=== PATIENT | female | born 1945 | race Caucasian/White ===

== ENCOUNTER 2017-06-15 17:15 | Emergency (ER) | payer MEDICARE ==
[2017-06-15 18:04] LABS: ABSOLUTE EOSINOPHILS # (AUTO) 0.1 10^3/uL (0.0-0.6); ABSOLUTE LYMPHOCYTES (AUTO) 1.3 10^3/uL (0.5-4.7); ABSOLUTE MONOCYTES (AUTO) 0.4 10^3/uL (0.1-1.4); ABSOLUTE NEUT (AUTO) 3.7 10^3/uL (1.7-8.2); BASOPHILS % (AUTO) 0.7 % (0-2); EOSINOPHILS % (AUTO) 2.5 % (0-6); HEMATOCRIT 38.3 % (36.0-47.0); HEMOGLOBIN 12.9 g/dL (12.0-15.5); LYMPHOCYTES % (AUTO) 23.9 % (13-45); MEAN CORPUSCULAR HEMOGLOBIN 30.2 pg (27.0-33.4); MEAN CORPUSCULAR HGB CONC 33.6 g/dL (32.0-36.0); MEAN CORPUSCULAR VOLUME 90 fl (80-97); MONOCYTES % (AUTO) 6.9 % (3-13); PLATELET COUNT 129 10^3/uL (150-450); RED BLOOD COUNT 4.26 10^6/uL (3.72-5.28); TOTAL CELLS COUNTED % (AUTO) 100 %; WHITE BLOOD COUNT 5.7 10^3/uL (4.0-10.5)
[2017-06-15 18:05] LABS: INTERNATIONAL RATION (INR) 0.94; PARTIAL THROMBOPLASTIN TIME 27.6 SEC (23.5-35.8); PROTHROMBIN TIME 13.1 SEC (11.4-15.4)
[2017-06-15 18:11] LABS: ALANINE AMINOTRANSFERASE 17 U/L (9-52); ALKALINE PHOSPHATASE 104 U/L (38-126); ANION GAP 13 (5-19); ASPARTATE AMINO TRANSFERASE 16 U/L (14-36); BILIRUBIN,DIRECT 0.3 mg/dL (0.0-0.4); BILIRUBIN,TOTAL 0.6 mg/dL (0.2-1.3); BLOOD UREA NITROGEN 17 mg/dL (7-20); CALCIUM 9.8 mg/dL (8.4-10.2); CARBON DIOXIDE 25 mmol/L (22-30); CHLORIDE 106 mmol/L (98-107); GLUCOSE 97 mg/dL (75-110); POTASSIUM 3.8 mmol/L (3.6-5.0); SODIUM 144.4 mmol/L (137-145); TOTAL PROTEIN 6.8 g/dL (6.3-8.2); URIC ACID 8.2 mg/dL (2.5-7.5)
--- NOTE | 2017-06-15 18:40 | ER Document Report ---
ED Extremity Problem, Lower - General Chief Complaint: Leg Pain Stated Complaint: RIGHT LEG PAIN Time Seen by Provider: 06/15/17 17:45 Notes: Patient says that her right leg and foot have been "flaring up" for the past month. She recalls no unusual activity or injury. She has been told in the past she has gout, but is currently not taking any gout medications. She says that the right leg hurts in the foot and ankle region, knee, and right hip area. She is having difficulty walking without assistance. Never had any problems with blood clots. Is currently on Effient. Also taking a baby aspirin daily. Patient used to be on Lasix, but has been out of it for 6 months. Feels anxious and panicky. Patient has a history of heart disease and previous heart attacks and has had multiple stents placed. Former smoker, stopped 12 years ago. TRAVEL OUTSIDE OF THE [place] IN LAST 30 DAYS: No - Related Data Allergies/Adverse Reactions: Shellfish * [Shellfish] Allergy (Verified 06/15/17 17:35) iodine Allergy (Severe, Uncoded 06/15/17 17:35) anaphalaxis Home Medications: ezetimibe. lisinopril. prasugrel. atorvastatin. HCTZ. metoprolol. ASA 81. Vit b12 Past Medical History - Social History Smoking Status: Former Smoker Chew tobacco use (# tins/day): No Frequency of alcohol use: None Drug Abuse: None Family History: CAD Patient has suicidal ideation: No Patient has homicidal ideation: No - Past Medical History Cardiac Medical History: Reports: Hx Coronary Artery Disease, Hx Heart Attack - 1999, Hx Hypercholesterolemia, Hx Hypertension Pulmonary Medical History: Reports: Hx Bronchitis Neurological Medical History: Reports: Hx Cerebrovascular Accident - TIA Endocrine Medical History: Reports: Hx Diabetes Mellitus Type 2 GI Medical History: Reports: Hx Hiatal Hernia Psychiatric Medical History: Reports: Hx Anxiety - situational, see hpi Past Surgical History: Reports: Hx Cardiac Catheterization - stents x5 2001,2002 ,2004, 2012 - Immunizations Hx Diphtheria, Pertussis, Tetanus Vaccination: Yes Review of Systems - Review of Systems Notes: REVIEW OF SYSTEMS: CONSTITUTIONAL : Denies fever. EENT: Denies eye, ear, nose or mouth or throat pain or other symptoms. CARDIOVASCULAR: Denies chest pain. RESPIRATORY: Denies cough, chest congestion, or shortness of breath. GASTROINTESTINAL: Denies abdominal pain or nausea, vomiting, or diarrhea. GENITOURINARY: Denies difficulty or painful urinating, urinary frequency, blood in urine. MUSCULOSKELETAL: Denies back or neck pain. Denies joint pain or swelling. Swelling and pain of the entire right leg. SKIN: Denies rash or skin lesions. NEUROLOGICAL: Denies LOC or altered mental status. Denies headache. Denies sensory loss or motor deficits. ALL OTHER SYSTEMS REVIEWED AND NEGATIVE. Physical Exam - Vital signs Vitals: Resp BP Pulse Ox 14 156/65 H 99 06/15/17 17:31 06/15/17 17:31 06/15/17 17:31 - Notes Notes: PHYSICAL EXAMINATION: GENERAL: Well-appearing, in no acute distress. Vital signs are all essentially normal. Patient appears to have pain when she puts weight on her leg and attempts to ambulate. HEAD: Atraumatic, normocephalic. EYES: Pupils equal round and reactive to light, extraocular movements intact. ENT: oropharynx clear without exudates. Moist mucous membranes. NECK: Normal range of motion, supple. LUNGS: Breath sounds clear and equal bilaterally. HEART: Regular rate and rhythm without murmurs. ABDOMEN: Soft, nontender. No guarding or rebound. No masses. BACK: No tenderness throughout entire back. EXTREMITIES: Normal range of motion without pain. Right leg may be slightly enlarged compared to the left. Right foot is enlarged compared to the left and it appears to be an edematous enlargement. Patient has some erythema and tenderness at the first MP joint of the big toe of the right foot. Right ankle not much discomfort to move. Knee the same. Hip also hurts to move. Good dorsalis pedis pulse in the foot. Right foot is warm and pink with good capillary refill. No significant swelling of the right knee or left knee. Negative Homans of both lower extremities. NEUROLOGICAL: Normal speech, because of pain in that entire limb. Normal sensory, motor, and reflex exams. Awake, alert, and oriented x3. Cranial nerves normal. PSYCH: Normal mood, normal affect. SKIN: Warm, dry, no rashes. Course - Re-evaluation Re-evalutation: 06/15/17 19:32 Patient's workup is completely normal except for the clot in the superficial saphenous vein and her uric acid level is very slightly elevated at 8.5. - Vital Signs Vital signs: Temp Pulse Resp BP Pulse Ox 98.7 F 14 156/65 H 99 06/15/17 17:33 06/15/17 17:31 06/15/17 17:31 06/15/17 17:31 - Laboratory Result Diagrams: 06/15/17 17:22 06/15/17 17:22 Laboratory results interpreted by me: 06/15/17 06/15/17 17:22 17:22 RDW 15.0 H Plt Count 129 L Uric Acid 8.2 H - Diagnostic Test Radiology reviewed: Image reviewed, Reports reviewed - Venous Doppler study is normal. No DVTs. Only some clot in the superficial saphenous. Discharge - Discharge Clinical Impression: Gout Condition: Stable Disposition: ELOPED Additional Instructions: You should arrange to find a primary care physician to further evaluate your leg pain if it is not doing better. Also to manage her medications better. Gout You have been diagnosed as having gout. Gout is a problem caused by an excess of uric acid, a natural chemical found in the body. The cause of this disease is unknown. Gout arthritis occurs when crystals of uric acid form in the joints. The big toe is the most common joint involved, but any joint can become affected. Persons with gout may also form uric acid kidney stones, resulting in flank pain and blood in the urine. Nodules of uric acid may form under the skin. The first step of treatment is to decrease the inflammation in the joint with antiinflammatory medication. Medication to lower the uric acid level in the blood may then be prescribed. This medication should be taken regularly, as any sudden change in dosage may provoke an attack of gout. Some foods, such as red meat, can provoke an attack in some gout sufferers. Call the doctor if new symptoms arise, or if you do not improve. Gout Diet Changing your diet can decrease the uric acid in your blood. High levels of uric acid cause gouty arthritis and uric acid kidney stones. If you have gout , you should avoid meats that are high in purine. Meat products to avoid include liver, kidneys, and brains. In general, poultry is better than red meats. Seafoods to avoid include anchovies, sardines, owens, mackerel, and scallops. In addition to limiting purine-rich foods, people with gout should limit protein intake to 10-15% of total calories. Carbohydrate intake should be around 50% of total daily calories. Limit fat intake to 30% of total daily calories. Cholesterol intake should be less than 300 mg/day. Maintain or achieve a healthy body weight. Weight loss should be gradual. Rapid weight loss can actually increase uric acid levels temporarily. Alcohol, especially beer, should be avoided. Get plenty of fluids. This dilutes urinary uric acid, and helps prevent uric acid kidney stones. Drink eight to twelve cups of water daily. Allopurinol Allopurinol (Zyloprim) is used to prevent gout and uric acid kidney stones. Allopurinol lowers uric acid in your body. It's most effective if taken daily. It's not useful to treat an attack of gout once it begins! There are usually no side effects from allopurinol. If you have any kidney disease, be sure your doctor knows about it before starting allopurinol ( you may need a lower dose). Stop the allopurinol and call your doctor if you develop severe itching, rash, unexplained blisters, unexplained bruises, jaundice (yellow skin), or swelling. Oral Narcotic Medication You have been given a prescription for pain control. This medication is a narcotic. It's best taken with food, as nausea can result if taken on an empty stomach. Don't operate machinery or drive within six hours of taking this medication. Do not combine this medicine with alcohol, or with any medication which can cause sedation (such as cold tablets or sleeping pills) unless you get permission from the physician. Narcotics tend to cause constipation. If possible, drink plenty of fluids and eat a diet high in fiber and fruits. FOLLOW-UP CARE: If you have been referred to a physician for follow-up care, call the physician s office for an appointment as you were instructed or within the next two days. If you experience worsening or a significant change in your symptoms, notify the physician immediately or return to the Emergency Department at any time for re-evaluation. Prescriptions: Oxycodone HCl/Acetaminophen [Percocet 5-325 mg Tablet] 1 tab PO Q4HP PRN #10 tablet PRN Reason: Allopurinol [Zyloprim 100 mg Tablet] 100 mg PO DAILY #30 tablet
[2017-06-15 19:43] VITALS: BP 150/81
--- NOTE | 2017-06-16 08:53 | XCELERA REPORT ---
[address] [address] Lower Extremity Venous Evaluation Name: LOLIS BELTRÁN Age: 72 yrs Gender: Female : 1945 Patient Status: Emergency Patient Location: ER Study Date: 06/15/2017 06:56 PM Procedure: Color flow and duplex imaging of the veins of the right lower extremity as well as the left Common Femoral vein. Reason For Study: Right leg pain and swelling for a month, Hx gout Ordering Physician: DWIGHT ALVARENGA Performed By: Mally De Luna Left Sided Venous Evaluation The left common femoral vein is fully compressible. Spontaneous and phasic flow is present in the left common femoral vein. Interpretation Summary No duplex evidence of DVT or obstruction in the right lower extremity nor in the left Common Femoral vein. : DWIGHT ALVARENGA > Dudley Dumont
== END 2017-06-15 19:43 | disposition home or self-care (01) ==
LOC: ER 17:15
DX: M10.9 Gout, unspecified (principal); I82.819 Embolism and thrombosis of superficial veins of unspecified lower extremity; M79.671 Pain in right foot; M25.571 Pain in right ankle and joints of right foot; M25.561 Pain in right knee; M25.551 Pain in right hip; I10 Essential (primary) hypertension; I25.10 Atherosclerotic heart disease of native coronary artery without angina pectoris; E11.9 Type 2 diabetes mellitus without complications; E78.00 Pure hypercholesterolemia, unspecified; Z79.02 Long term (current) use of antithrombotics/antiplatelets; Z79.82 Long term (current) use of aspirin; Z79.899 Other long term (current) drug therapy; Z95.5 Presence of coronary angioplasty implant and graft; Z87.891 Personal history of nicotine dependence; Z91.013 Allergy to seafood; Z87.892 Personal history of anaphylaxis
CPT/HCPCS: 36415; 80053; 84550; 85025; 85610; 85730; 86430; 93971; 99284

== ENCOUNTER 2017-07-12 09:09 | Emergency (ER) | payer MEDICARE ==
[2017-07-12 10:09] LABS: ABSOLUTE EOSINOPHILS # (AUTO) 0.1 10^3/uL (0.0-0.6); ABSOLUTE LYMPHOCYTES (AUTO) 0.6 10^3/uL (0.5-4.7); ABSOLUTE MONOCYTES (AUTO) 0.3 10^3/uL (0.1-1.4); ABSOLUTE NEUT (AUTO) 3.1 10^3/uL (1.7-8.2); BASOPHILS % (AUTO) 1.1 % (0-2); EOSINOPHILS % (AUTO) 2.6 % (0-6); HEMATOCRIT 37.7 % (36.0-47.0); HEMOGLOBIN 12.7 g/dL (12.0-15.5); MEAN CORPUSCULAR HEMOGLOBIN 30.5 pg (27.0-33.4); MEAN CORPUSCULAR HGB CONC 33.6 g/dL (32.0-36.0); MEAN CORPUSCULAR VOLUME 91 fl (80-97); MONOCYTES % (AUTO) 6.4 % (3-13); PLATELET COUNT 111 10^3/uL (150-450); RED BLOOD COUNT 4.15 10^6/uL (3.72-5.28); RED CELL DISTRIBUTION WIDTH 15.4 % (11.5-14.0); SEGMENTED NEUTROPHILS % (AUTO) 74.9 % (42-78); TOTAL CELLS COUNTED % (AUTO) 100 %; WHITE BLOOD COUNT 4.1 10^3/uL (4.0-10.5)
--- NOTE | 2017-07-12 10:11 | ER Document Report ---
ED General - General Chief Complaint: Shortness Of Breath Stated Complaint: SHORTNESS OF BREATH Time Seen by Provider: 07/12/17 09:53 Information source: Patient Notes: Patient is a 72-year-old female with past medical history of borderline diabetes and cardiac stent 5 with the last stent placed greater than 10 years ago. 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 Patient states that around 2 days ago she has developed some runny nose, congestion, sore throat, and a mild cough. She denies any and all vomiting, fevers, chest pain, abdominal pain, calf pain or leg swelling. Patient denies any difficulty breathing or swallowing. TRAVEL OUTSIDE OF THE [place] IN LAST 30 DAYS: No - HPI Onset: Other - See above Onset/Duration: Gradual Quality of pain: Achy Severity: Mild Pain Level: Denies Associated symptoms: Other - See above Exacerbated by: Denies Relieved by: Denies Similar symptoms previously: No Recently seen / treated by doctor: No - Related Data Allergies/Adverse Reactions: Shellfish * [Shellfish] Allergy (Verified 07/12/17 09:43) iodine Allergy (Severe, Uncoded 07/12/17 09:43) anaphalaxis Past Medical History - General Information source: Patient - Social History Smoking Status: Former Smoker Cigarette use (# per day): No Chew tobacco use (# tins/day): No Smoking Education Provided: No Frequency of alcohol use: None Drug Abuse: None Family History: CAD Patient has suicidal ideation: No Patient has homicidal ideation: No - Past Medical History Cardiac Medical History: Reports: Hx Coronary Artery Disease, Hx Heart Attack - 2000, Hx Hypercholesterolemia, Hx Hypertension Pulmonary Medical History: Reports: Hx Bronchitis Neurological Medical History: Reports: Hx Cerebrovascular Accident - TIA Endocrine Medical History: Reports: Hx Diabetes Mellitus Type 2 Renal/ Medical History: Denies: Hx Peritoneal Dialysis GI Medical History: Reports: Hx Hiatal Hernia Psychiatric Medical History: Reports: Hx Anxiety - situational, see hpi Past Surgical History: Reports: Hx Cardiac Catheterization - stents x5 2001,2002 ,2004, 2012 - Immunizations Hx Diphtheria, Pertussis, Tetanus Vaccination: Yes Review of Systems - Review of Systems Constitutional: denies: Fever EENT: Nose congestion, Nose discharge. denies: Eye discharge Cardiovascular: denies: Chest pain, Palpitations Respiratory: Cough Gastrointestinal: denies: Abdominal pain, Vomiting Genitourinary: denies: Dysuria Musculoskeletal: denies: Leg swelling Skin: Other - no hives. denies: Rash Neurological/Psychological: Other - no slurred speech -: Yes All other systems reviewed and negative Physical Exam - Vital signs Vitals: Temp Pulse Resp BP Pulse Ox 97.9 F 55 L 20 166/57 H 99 07/12/17 09:10 07/12/17 09:10 07/12/17 09:10 07/12/17 09:10 07/12/17 09:10 Notes: Reviewed vital signs and nursing note as charted by RN. CONSTITUTIONAL: Alert and oriented and responds appropriately to questions. Well -appearing; well-nourished HEAD: Normocephalic; atraumatic EYES: PERRL; Conjunctivae clear, sclerae non-icteric ENT: Normal nose; bilateral nonpurulent nasal rhinorrhea; moist mucous membranes ; pharynx with posterior erythema with no peritonsillar swelling or lesions noted NECK: Supple without meningismus; non-tender; no cervical lymphadenopathy, no masses CARD: Regular rate and rhythm; no murmurs, no clicks, no rubs, no gallops; symmetric distal pulses RESP: Normal chest excursion without splinting or tachypnea; breath sounds clear and equal bilaterally; no wheezes, no rhonchi, no rales ABD/GI: Normal bowel sounds; non-distended; soft, non-tender BACK: The back appears normal and is non-tender to palpation, there is no CVA tenderness EXT: Normal ROM in all joints; non-tender to palpation; no cyanosis, no effusions, no edema SKIN: No acute lesions noted NEURO: Moves all extremities equally; Motor and sensory function intact PSYCH: The patient's mood and manner are appropriate. Grooming and personal hygiene are appropriate. Course - Re-evaluation Re-evalutation: 07/12/17 10:11 Given the above history and physical examination, a cardiac panel was ordered in triage including an x-ray of the chest and an EKG. I have added a rapid strep. I do believe the risk of ACS, PE, dissection to be extremely unlikely. I believe the patient most likely is suffering from an upper respiratory tract infection. Vital signs are stable. EKG shows heart of 57, normal sinus rhythm, normal axis, no obvious ST elevation or depression 07/12/17 11:41 Labs and troponin as recorded. Chest x-ray shows normal heart, normal mediastinum, no fractures, normal lung thurston, no pneumothorax. Patient still denies any pain. Rapid strep is negative. Vital signs are stable. Minimal laboratory values of mild dehydration. 500 cc of normal saline has been provided. Given the above history and physical and extensive workup, patient will be discharged home with strict return precautions and follow-up with the primary care provider. - Vital Signs Vital signs: Temp Pulse Resp BP Pulse Ox 97.9 F 55 L 12 155/61 H 100 07/12/17 09:10 07/12/17 09:10 07/12/17 11:01 07/12/17 11:01 07/12/17 11:01 - Laboratory Result Diagrams: 07/12/17 09:44 07/12/17 10:40 Laboratory results interpreted by me: 07/12/17 07/12/17 09:44 10:40 RDW 15.4 H Plt Count 111 L Sodium 146.8 H Potassium 3.4 L Chloride 110 H Total Protein 6.2 L Discharge - Discharge Clinical Impression: Cough, Sore throat Condition: Good Disposition: HOME, SELF-CARE Additional Instructions: Come back immediately with any worsening cough, any chest pain, any leg swelling , any fevers, or any other acute problems. Please follow-up with your primary care physician as we have discussed.
--- NOTE | 2017-07-12 10:16 | RADIOLOGY REPORT (SQ) ---
EXAM DESCRIPTION: CHEST SINGLE VIEW COMPLETED DATE/TIME: 07/12/2017 10:07 am REASON FOR STUDY: bed 1 db COMPARISON: 01/12/2013. EXAM PARAMETERS: NUMBER OF VIEWS: One view. TECHNIQUE: Single frontal radiographic view of the chest acquired. RADIATION DOSE: NA LIMITATIONS: None. FINDINGS: LUNGS AND PLEURA: No opacities, masses or pneumothorax. No pleural effusion. MEDIASTINUM AND HILAR STRUCTURES: No masses. Contour normal. HEART AND VASCULAR STRUCTURES: Heart normal in size. Normal vasculature. BONES: No acute findings. HARDWARE: None in the chest. OTHER: No other significant finding. IMPRESSION: NO ACUTE RADIOGRAPHIC FINDING IN THE CHEST. TECHNICAL DOCUMENTATION: JOB ID: [id number] [employer]- All Rights Reserved Reading location - IP/workstation name: [email or web address]
[2017-07-12 10:40] LABS: TROPONIN I < 0.012 ng/mL
[2017-07-12 11:08] LABS: ALANINE AMINOTRANSFERASE 20 U/L (9-52); ALBUMIN 3.5 g/dL (3.5-5.0); ALKALINE PHOSPHATASE 96 U/L (38-126); ANION GAP 8 (5-19); ASPARTATE AMINO TRANSFERASE 17 U/L (14-36); BILIRUBIN,DIRECT 0.3 mg/dL (0.0-0.4); BILIRUBIN,TOTAL 1.1 mg/dL (0.2-1.3); BLOOD UREA NITROGEN 15 mg/dL (7-20); CALCIUM 9.5 mg/dL (8.4-10.2); CARBON DIOXIDE 29 mmol/L (22-30); CHLORIDE 110 mmol/L (98-107); CREATINE KINASE 57 U/L (30-135); GLUCOSE 95 mg/dL (75-110); POTASSIUM 3.4 mmol/L (3.6-5.0); SODIUM 146.8 mmol/L (137-145); TOTAL PROTEIN 6.2 g/dL (6.3-8.2)
[2017-07-12] MEDS ORDERED: NORMAL SALINE 1000 ML 500 ML IV ONE (11:43)
--- NOTE | 2017-07-12 11:43 | EKG REPORT ---
SEVERITY:- NORMAL ECG - SINUS RHYTHM : Confirmed by: Tasneem العلي MD 12-Jul-2017 11:42:15
[2017-07-12 14:53] VITALS: BP 165/59
== END 2017-07-12 14:53 | disposition home or self-care (01) ==
LOC: ER 09:09
DX: R05 Cough (principal); J02.9 Acute pharyngitis, unspecified; R06.02 Shortness of breath; R09.89 Other specified symptoms and signs involving the circulatory and respiratory systems; R09.81 Nasal congestion; Z87.891 Personal history of nicotine dependence; E11.9 Type 2 diabetes mellitus without complications; I25.10 Atherosclerotic heart disease of native coronary artery without angina pectoris; I25.2 Old myocardial infarction; I10 Essential (primary) hypertension
CPT/HCPCS: 93005; 99285; 96360; 36415; 87070; 82553; 87880; 82550; 85025; 80053; 84484; 71045; 93010; J7030

== ENCOUNTER → 2017-09-10 | Outpatient (CLI) | payer MEDICARE ==
--- NOTE | 2017-09-10 13:30 | RADIOLOGY REPORT (SQ) ---
EXAM DESCRIPTION: HIPS BILATERAL COMPLETED DATE/TIME: 09/10/2017 1:07 pm REASON FOR STUDY: BILATERAL PRIMARY OSTEOARTHRITIS OF HIP M16.0 BILATERAL PRIMARY OSTEOARTHRITIS OF HIP COMPARISON: None. NUMBER OF VIEWS: Two views TECHNIQUE: AP pelvis and additional frog-leg view of both hips. LIMITATIONS: None. FINDINGS: MINERALIZATION: Normal. HIPS: [id number] appearance of the right and left hip joints. Subcortical cysts in the bilateral f emoral head and weightbearing acetabuli. Minimal bony spurring. No acute fracture. PELVIS AND SACRUM: No acute fracture or dislocation. No worrisome bone lesions. PUBIS AND ISCHIUM: No acute fracture. LOWER LUMBAR SPINE: No significant findings as visualized. SOFT TISSUES: No findings. OTHER: Mild left SI joint sclerosis IMPRESSION: Advanced osteoarthritis bilateral hip joints. TECHNICAL DOCUMENTATION: JOB ID: [id number] [employer]- All Rights Reserved Reading location - IP/workstation name: [email or web address]
== END ==
LOC: OD 12:44
PROVIDERS: ATTEND Internal Medicine
DX: M16.0 Bilateral primary osteoarthritis of hip (principal)
CPT/HCPCS: 73522

== ENCOUNTER → 2017-11-13 | Outpatient (CLI) | payer MEDICARE ==
[~2017-11-13] MED LIST: REGADENOSON INJ 0.4 MG/5 ML DISP.SYRIN IV ONE
--- NOTE | 2017-11-13 13:10 | DRAGON STRESS TEST REPORT ---
INTRAVENOUS LEXISCAN CARDIOLITE STRESS TEST USING SINGLE PHOTON EMMISION COMPUTERIZED TOMOGRAPHIC. DATE OF PROCEDURE: November 13, 2017, INDICATION : CAD, dyspnea, preop clearance CARDIAC RISK FACTORS: CAD, dyslipidemia, prior stent placement RESTING EKG: Sinus rhythm, baseline minor nonspecific ST segment depression. STRESS EK mm additional ST segment changes noted with LexiScan bolus REASON FOR TERMINATION: Protocol. PROCEDURE REPORT: Baseline heart rate 52 beats per minute with blood pressure of 148/69. Patient had no significant complaints. Patient was bolused with Lexiscan 0.4 mg intravenously followed by saline bolus. Heart rate at 2 minutes post bolus 83 with a blood pressure of 137/75. 3 minutes post bolus heart rate 77 with blood pressure of 137/73. No significant EKG changes were noted. Patient had chest discomfort, felt to be a significant complaints during the procedure. CONCLUSIONS: Positive EKG changes noted as described above. NUCLEAR DATA: At rest the patient was given 12.30 millicuries of technetium 99 sestamibi injected intravenously. As per protocol rest gated SPECT images were obtained. On day of stress test, the patient was given intravenous LexiScan at a dose of 0.4 mg in 5 mL intravenously, followed by flush with normal saline. Subsequently the stress dose of 37.0 millicuries of technetium 99 sestamibi was injected intravenously. As per protocol stress gated images were obtained. NUCLEAR INTERPRETATION: Both raw and processed data were used for interpretation. Visual, qualitative, computer-generated quantitative data was used. There was good myocardial uptake of technetium compound. Motion artifact and soft tissue attenuations were noted. Increased visceral uptake was noted. Mild to moderate transient perfusion defect noted in the mid and distal inferior wall, consistent with mild to moderate ischemia. No definitive areas of fixed perfusion defect or scars noted. EKG gated imaging showed LV EF at 59 %, rest and stress gated EF similar visually. T. I D. ratio was 1.06. Lung heart ratio noted to be within normal limits 0.27. No significant extracardiac and abnormal radiotracer activities were noted. RV free wall uptake was noted to be WNL. IMPRESSION: Also refer to comments under nuclear interpretation. Also test results needs to be interpreted in the context of pretest probability. 1. Mild to moderate transient perfusion defect noted in the mid and distal inferior wall, consistent with mild to moderate ischemia. Total SDS was 4. 2. There is no definitive scintigraphic evidence of myocardial infarction/scar. 3. EKG gated imaging shows left ventricular ejection fraction of approx. 59 %. 4. Clinical correlation requested as worse disease and or balanced ischemia could be missed. In approximately 10% of the cases Lexiscan may not cause adequate vasodilatory stress. RECOMMENDATIONS: Aggressive risk factor modification and medical management. Further evaluation may be needed if continued symptoms or other high risk indicators are noted on clinical evaluation. Close cardiology follow-up is also recommended. Clinical correlation with echocardiogram derived ejection fraction. Inability to exercise by itself can lead to increased cardiovascular event risks. Consider cardiology consultation and or follow-up if clinically indicated. I am available for cardiology evaluation and consultation if requested by the clarification operator, unless patient already has a clinical writer. Dr. Madison Jeronimo. [facility] Board certified in cardiology and sleep medicine. Board certified in nuclear cardiology, adult echocardiography. [facility]
== END ==
LOC: RAD 07:20
PROVIDERS: ATTEND Internal Medicine
DX: I25.10 Atherosclerotic heart disease of native coronary artery without angina pectoris (principal); E78.5 Hyperlipidemia, unspecified
CPT/HCPCS: 93017; 78452; A9500; J2785; Q9969

== ENCOUNTER 2017-12-13 22:22 | Inpatient (IN) | payer MEDICARE ==
--- NOTE | 2017-12-13 22:48 | ER Document Report ---
ED General - General Stated Complaint: COLD/NAUSEOUS/FEELS HOT Time Seen by Provider: 12/13/17 22:34 Notes: Patient is a 72-year-old female that comes to the emergency department for chief complaint of shaking chills, fever, and shortness of breath. She states that she has had coughing episodes for the past 2 weeks but worsened today, she states she has coughed up phlegm that looks like "glue". EMS reports initial oxygen saturation was 92% on room air and patient had tachypnea, she was placed on 4 L nasal cannula by EMS, after arrival placed on 2 L nasal cannula, no current hypoxia. She has not had the influenza or pneumonia vaccines. Former smoker, no inhalers, no oxygen at home for COPD. Patient does report some dysuria and states her urine "looks like gold". She denies headache, abdominal pain, chest pain, flank pain. Remaining medical history includes hypertension, ND, hyperlipidemia. TRAVEL OUTSIDE OF THE [place] IN LAST 30 DAYS: No - Related Data Allergies/Adverse Reactions: grapefruit Allergy (Verified 12/13/17 23:32) Shellfish * [Shellfish] Allergy (Verified 07/12/17 09:43) iodine Allergy (Severe, Uncoded 07/12/17 09:43) anaphalaxis Past Medical History - General Information source: Patient - Social History Smoking Status: Former Smoker Frequency of alcohol use: None Drug Abuse: None Lives with: Alone Family History: CAD - Past Medical History Cardiac Medical History: Reports: Hx Coronary Artery Disease, Hx Heart Attack - 1999, Hx Hypercholesterolemia, Hx Hypertension Pulmonary Medical History: Reports: Hx Bronchitis Neurological Medical History: Reports: Hx Cerebrovascular Accident - TIA Endocrine Medical History: Reports: Hx Diabetes Mellitus Type 2 Renal/ Medical History: Denies: Hx Peritoneal Dialysis GI Medical History: Reports: Hx Hiatal Hernia Psychiatric Medical History: Reports: Hx Anxiety - situational, see hpi Past Surgical History: Reports: Hx Cardiac Catheterization - stents x5 2001,2002 ,2004, 2012 - Immunizations Hx Diphtheria, Pertussis, Tetanus Vaccination: Yes Review of Systems - Review of Systems Constitutional: See HPI EENT: No symptoms reported Cardiovascular: No symptoms reported Respiratory: See HPI Gastrointestinal: No symptoms reported Genitourinary: No symptoms reported Female Genitourinary: No symptoms reported Musculoskeletal: No symptoms reported Skin: No symptoms reported Hematologic/Lymphatic: No symptoms reported Neurological/Psychological: No symptoms reported Physical Exam - Vital signs Vitals: Pulse Ox 100 12/13/17 22:39 - Notes Notes: GENERAL: Flushed and slightly ill-appearing, however she is still alert, conversational, and she is not in distress. HEAD: Normocephalic, atraumatic. EYES: Pupils equal, round, and reactive to light. Extraocular movements intact. ENT: Oral mucosa moist, tongue midline. Oropharynx unremarkable. Airway patent. Nares patent, no nasal septal hematoma, TM's intact. NECK: Full range of motion. Supple. Trachea midline. LUNGS: Mainly clear bilaterally, however there are rhonchi noted on the right mainly in the right lower lung lobe. HEART: Regular rate and rhythm. No murmur ABDOMEN: Soft, non-tender. Non-distended. Bowel sounds present in all 4 quadrants. GENITOURINARY: Deferred EXTREMITIES: Moves all 4 extremities spontaneously. No edema, normal radial and dorsalis pedis pulses bilaterally. No cyanosis. BACK: no cervical, thoracic, lumbar midline tenderness. No saddle anesthesia, normal distal neurovascular exam. NEUROLOGICAL: Alert and oriented x3. Normal speech. [cranial nerves II through XII grossly intact]. PSYCH: Normal affect, normal mood. SKIN: Flushed. Warm, dry, normal turgor. No rashes or lesions noted. Course - Re-evaluation Re-evalutation: Patient is slightly ill-appearing and flushed with occasional productive cough and rhonchi on the right side on auscultation of the lungs. High clinical suspicion of pneumonia. Influenza was checked and negative. Chest x-ray questionable for pneumonia per my read, radiology read reads possible vascular congestion, BNP is not elevated, no rales, no history of CHF. Initiating treatment for pneumonia with Rocephin and azithromycin. Urinalysis also indicates infection. Lactic acid is elevated at 2.9. Patient is not tachycardic, not hypotensive, and she remains alert and generally well- appearing on reevaluation. CBC does not show leukocytosis but does show leftward shift. Chemistry nonspecific. Discussed with patient. Because of multiple infections, age, possible early sepsis without shock, hypoxia off of oxygen. Patient will be discussed for admission with her provider Dr. Stern. Patient is very agreeable with this plan. Called and spoke with Dr. Stern, patient will be admitted to the hospital for full admission. - Vital Signs Vital signs: Temp Pulse Resp BP Pulse Ox 99.1 F 17 108/53 L 100 12/14/17 01:15 12/14/17 00:00 12/13/17 23:23 12/14/17 00:00 - Laboratory Result Diagrams: 12/13/17 23:21 12/13/17 23:21 Laboratory results interpreted by me: 12/13/17 12/13/17 12/13/17 23:21 23:21 23:21 Hct 35.4 L RDW 15.7 H Plt Count 86 L Seg Neuts % (Manual) 93 H Lymphocytes % (Manual) 2 L Abs Lymphs (Manual) 0.2 L Potassium 3.5 L BUN 21 H Est GFR (Non-Af Amer) 55 L Glucose 127 H Lactic Acid 2.9 H Urine Protein Urine Blood Ur Leukocyte Esterase 12/14/17 00:20 Hct RDW Plt Count Seg Neuts % (Manual) Lymphocytes % (Manual) Abs Lymphs (Manual) Potassium BUN Est GFR (Non-Af Amer) Glucose Lactic Acid Urine Protein 30 H Urine Blood MODERATE H Ur Leukocyte Esterase LARGE H Discharge - Discharge Clinical Impression: Productive cough Fever Qualifiers: Fever type: unspecified Qualified Code(s): R50.9 - Fever, unspecified Urinary tract infection Qualifiers: Urinary tract infection type: site unspecified Hematuria presence: without hematuria Qualified Code(s): N39.0 - Urinary tract infection, site not specified Condition: Stable Disposition: ADMITTED INPATIENT Admitting Provider: Leena Unit Admitted: Telemetry
--- NOTE | 2017-12-13 23:08 | RADIOLOGY REPORT (SQ) ---
EXAM DESCRIPTION: XR CHEST 1 VIEW COMPLETED DATE/TME: 12/13/2017 22:40 CLINICAL HISTORY: 72 years Female, shortness of breath, fever, hypoxia COMPARISON:07/12/2017 NUMBER OF VIEWS/TECHNIQUE: 1/AP FINDINGS: Adequate lung volume, pulmonary vascular congestion, normal cardiac silhouette, atherosclerosis, and intact bony thorax. IMPRESSION: Pulmonary vascular congestion.
[2017-12-13 23:35] LABS: HEMATOCRIT 35.4 % (36.0-47.0); MEAN CORPUSCULAR HEMOGLOBIN 30.1 pg (27.0-33.4); MEAN CORPUSCULAR VOLUME 89 fl (80-97); RED BLOOD COUNT 3.99 10^6/uL (3.72-5.28); RED CELL DISTRIBUTION WIDTH 15.7 % (11.5-14.0); WHITE BLOOD COUNT 7.7 10^3/uL (4.0-10.5)
[2017-12-13 23:37] LABS: PLATELET COUNT 86 10^3/uL (150-450)
[2017-12-13 23:40] LABS: VENOUS BLOOD BASE EXCESS -0.4 mmol/L; VENOUS BLOOD HCO3 24.1 mmol/L (20-32); VENOUS BLOOD PH 7.41 (7.30-7.42)
[2017-12-13 23:46] LABS: ALANINE AMINOTRANSFERASE 15 U/L (9-52); ALBUMIN 3.6 g/dL (3.5-5.0); ALKALINE PHOSPHATASE 105 U/L (38-126); ANION GAP 13 (5-19); ASPARTATE AMINO TRANSFERASE 18 U/L (14-36); BILIRUBIN,DIRECT 0.1 mg/dL (0.0-0.4); BLOOD UREA NITROGEN 21 mg/dL (7-20); CARBON DIOXIDE 22 mmol/L (22-30); CHLORIDE 107 mmol/L (98-107); GLUCOSE 127 mg/dL (75-110); POTASSIUM 3.5 mmol/L (3.6-5.0); SODIUM 141.7 mmol/L (137-145); TOTAL PROTEIN 6.3 g/dL (6.3-8.2)
[2017-12-13] MEDS ORDERED: CEFTRIAXONE INJ 1000 MG VIAL IV ONE (23:53)
[2017-12-13] MEDS ORDERED: AZITHROMYCIN INJ 500 MG VIAL IV ONE (23:54)
[2017-12-13 23:55] LABS: ABSOLUTE LYMPHOCYTES# (MANUAL) 0.2 10^3/uL (0.5-4.7); ABSOLUTE MONOCYTES # (MANUAL) 0.3 10^3/uL (0.1-1.4); ABSOLUTE NEUTROPHILS# (MANUAL) 7.2 10^3/uL (1.7-8.2); BASOPHILS % (MANUAL) 0 % (0-2); EOSINOPHILS % (MANUAL) 0 % (0-6); LYMPHOCYTES % (MANUAL) 2 % (13-45); MONOCYTES % (MANUAL) 4 % (3-13); SEGMENTED NEUTROPHILS % (MAN) 93 % (42-78); TOTAL CELLS COUNTED 100
[2017-12-13 23:57] LABS: NT PRO BNP 235 pg/mL (5-900)
[2017-12-13 23:58] LABS: ANISOCYTOSIS SLIGHT; OVALOCYTES SLIGHT; PLATELET COMMENT DECREASED; POIKILOCYTOSIS SLIGHT
[2017-12-13 23:59] LABS: TROPONIN I < 0.012 ng/mL
[2017-12-14 00:45] LABS: AMORPHOUS SEDIMENT,URINE TRACE /HPF; APPEARANCE,URINE CLOUDY; BILIRUBIN,URINE NEGATIVE (NEGATIVE); COLOR,URINE YELLOW; GLUCOSE, URINE NEGATIVE (NEGATIVE); KETONES,URINE NEGATIVE (NEGATIVE); LEUKOCYTE ESTERASE,URINE LARGE (NEGATIVE); NITRITE,URINE NEGATIVE (NEGATIVE); PROTEIN,URINE 30 mg/dL (NEGATIVE); URINE SPECIFIC GRAVITY 1.012; UROBILINOGEN,URINE NEGATIVE mg/dL (<2.0)
[2017-12-14 00:59] LABS: A TYPE INFLUENZA AG NEGATIVE (NEGATIVE)
[2017-12-14 01:00] LABS: B INFLUENZA AG NEGATIVE (NEGATIVE)
[2017-12-14] MEDS ORDERED: NORMAL SALINE 1000 ML 1,000 ML IV PRN (01:58)
[2017-12-14 02:58] LABS: FREE T4 (FREE THYROXINE) 1.02 ng/dL (0.78-2.19)
[2017-12-14 03:12] LABS: THYROID STIMULATING HORMONE 1.89 uIU/mL (0.47-4.68)
[2017-12-14 03:54] LABS: ARTERIAL BLOOD BASE EXCESS 1.4 mmol/L; ARTERIAL BLOOD FIO2 2L; ARTERIAL BLOOD H2CO3 1.23 mmol/L (1.05-1.35); ARTERIAL BLOOD HCO3 25.9 mmol/L (20-24); ARTERIAL BLOOD O2 SATURATION 84.7 % (94-98); ARTERIAL BLOOD PCO2 40.7 mmHg (35-45); ARTERIAL BLOOD PH 7.42 (7.35-7.45); ARTERIAL BLOOD PO2 48.1 mmHg (80-100); ARTERIAL BLOOD TOTAL CO2 27.2 mmol/L (21-25)
[2017-12-14 04:15] LABS: CREATINE KINASE MB 0.45 ng/mL (<4.55)
[2017-12-14 04:17] LABS: TROPONIN I < 0.012 ng/mL
--- NOTE | 2017-12-14 04:39 | RADIOLOGY REPORT (SQ) ---
CLINICAL HISTORY: pneumonia COMPARISON: None. TECHNIQUE: CT CHEST WITHOUT IV CONTRAST on 12/14/2017 12:00 AM [employer] This exam was performed according to our departmental dose-optimization program, which includes automated exposure control, adjustment of the mA and/or kV according to patient size and/or use of iterative reconstruction technique. FINDINGS: The heart is mildly enlarged. There is no pericardial effusion. Intrathoracic lymph nodes are not enlarged. There is no pleural effusion, pleural thickening or pneumothorax. Central airways are patent. There is mild bibasilar atelectasis. There are no acute abnormalities within the limited images of the upper abdomen. There are no acute osseous findings. No suspicious bony lesions. IMPRESSION: No convincing pneumonia.
--- NOTE | 2017-12-14 07:21 | EKG REPORT ---
SEVERITY:- BORDERLINE ECG - SINUS RHYTHM BORDERLINE REPOL ABNORMALITY, ANT-LAT LEADS : Confirmed by: Arben Leon MD 14-Dec-2017 07:21:11
[2017-12-14] MEDS ORDERED: PRASUGREL HCL 10 MG TABLET PO SCH (10:00)
[2017-12-14] MEDS ORDERED: AZITHROMYCIN 500 MG in DEXTROSE 5%-WATER 250 ML IV SCH (10:00)
[2017-12-14] MEDS ORDERED: CEFTRIAXONE 1 GM/D5W RTU 1 GM/50 ML RTUPB IV SCH (10:00)
[2017-12-14 11:21] LABS: CREATINE KINASE MB 0.63 ng/mL (<4.55)
[2017-12-14 11:24] LABS: TROPONIN I < 0.012 ng/mL
[2017-12-14] MEDS: NORMAL SALINE 1000 ML 1,000 ML IV PRN (15:56)
[2017-12-14 16:35] LABS: TROPONIN I < 0.012 ng/mL
[2017-12-14] MEDS: CEFTRIAXONE SODIUM 1,000 MG in DEXTROSE 5%-WATER 50 ML IV SCH (17:32)
--- NOTE | 2017-12-14 20:24 | PDOC H&P ---
History of Present Illness Admission Date/PCP: 12/14/17 01:19 GREY VARELA MD History of Present Illness: LOLIS BELTRÁN is a 72 year old female, She has history of coronary artery disease, she came to the emergency room for evaluation of cough shortness of breath for the last 2 weeks, in the emergency room it was felt that she has pneumonia, The chest x-ray was interpreted as pulmonary vascular congestion, the ABG on FiO2 2 L showed PO2 of 48, this was arterial blood, she has grossly abnormal urinalysis does suggest UTI, there was no leukocytosis. I was not overly convinced that she has pneumonia on the basis of the chest x-ray and also the fact that she has no fever with no leukocytosis, I requested for CT chest without contrast, this was normal. I suspected that she has PE based on constellation of symptoms including shortness of breath severe hypoxemia and also elevated d-dimer. Unfortunately she has dye/contrast allergy CTA chest could not be done because of this allergy issue also technetium isotope use for a VQ scan [place] the [place], the pretest probability for PE is very high, I requested for venous Doppler of the leg to be done it was negative for deep vein thrombosis she will empirically be treated for PE with IV heparin Past Medical History Cardiac Medical History: Reports: Coronary Artery Disease, Myocardial Infarction - 2000, Hyperlipidema, Hypertension Pulmonary Medical History: Reports: Bronchitis Endocrine Medical History: Reports: Diabetes Mellitus Type 2 GI Medical History: Reports: Hiatal Hernia Psychiatric Medical History: Reports: Depression Past Surgical History Past Surgical History: Reports: Cardiac Catheterization - stents x5 2001,2002, 2004, 2011 Social History Lives with: Alone Smoking Status: Former Smoker Last Time Smoked: 30 years ago Frequency of Alcohol Use: None Hx Recreational Drug Use: No Drugs: Cocaine Hx Prescription Drug Abuse: No - Advance Directive Resuscitation Status: Full Code Family History Family History: CAD Parental Family History Reviewed: Yes Children Family History Reviewed: Yes Sibling(s) Family History Reviewed.: Yes Medication/Allergy Home Medications: Aspirin [Ecotrin 81 mg EC Tablet] 81 mg PO DAILY 12/14/17 Atorvastatin Calcium [Lipitor 80 mg Tablet] 80 mg PO QHS 12/14/17 Doxepin HCl [Silenor] 6 mg PO HSP PRN 12/14/17 Ezetimibe [Zetia 10 mg Tablet] 10 mg PO DAILY 12/14/17 Hydrochlorothiazide [Hydrodiuril 12.5 mg Tablet] 12.5 mg PO DAILY 12/14/17 Lisinopril [Zestril] 40 mg PO DAILY 12/14/17 Metoprolol Succinate [Toprol Xl 50 mg Tab.sr] 50 mg PO Q12 12/14/17 Prasugrel HCl [Effient] 10 mg PO DAILY 12/14/17 Allergies/Adverse Reactions: iodine Allergy (Severe, Verified 12/17/17 10:37) Anaphylaxis grapefruit Allergy (Verified 12/13/17 23:32) Shellfish * [Shellfish] Allergy (Verified 07/12/17 09:43) Review of Systems Constitutional: ABSENT: chills, fever(s), headache(s), weight gain, weight loss Eyes: ABSENT: visual disturbances Ears: ABSENT: hearing changes Cardiovascular: PRESENT: dyspnea on exertion. ABSENT: chest pain, edema, orthropnea, palpitations Respiratory: PRESENT: cough, dyspnea. ABSENT: hemoptysis Gastrointestinal: ABSENT: abdominal pain, constipation, diarrhea, hematemesis, hematochezia, nausea, vomiting Genitourinary: ABSENT: dysuria, hematuria Musculoskeletal: ABSENT: joint swelling Integumentary: ABSENT: rash, wounds Neurological: ABSENT: abnormal gait, abnormal speech, confusion, dizziness, focal weakness, syncope Psychiatric: ABSENT: anxiety, depression, homidical ideation, suicidal ideation Endocrine: ABSENT: cold intolerance, heat intolerance, menstrual abnormalities, polydipsia, polyuria Hematologic/Lymphatic: ABSENT: easy bleeding, easy bruising, lymphadenopathy Physical Exam Vital Signs: Temp Pulse Resp BP Pulse Ox 98.8 F 62 19 110/49 L 100 12/14/17 15:19 12/14/17 19:00 12/14/17 15:19 12/14/17 15:19 12/14/17 15:19 Intake & Output 12/13/17 12/14/17 12/15/17 06:59 06:59 06:59 Intake Total 711 Output Total 500 1100 Balance -500 -389 Weight 82.7 kg General appearance: PRESENT: mild distress Head exam: PRESENT: atraumatic, normocephalic Eye exam: PRESENT: PERRLA. ABSENT: scleral icterus Ear exam: PRESENT: normal external ear exam Mouth exam: PRESENT: moist, tongue midline Neck exam: PRESENT: full ROM Respiratory exam: PRESENT: decreased breath sounds Cardiovascular exam: PRESENT: RRR, +S1, +S2 GI/Abdominal exam: PRESENT: normal bowel sounds, soft Rectal exam: PRESENT: deferred Neurological exam: PRESENT: alert, CN II-XII grossly intact Psychiatric exam: PRESENT: appropriate affect, normal mood Skin exam: PRESENT: dry, intact, warm Results Laboratory Results: 12/14/17 12/14/17 03:18 03:18 Carbonic Acid 1.23 HCO3/H2CO3 Ratio 21:1 ABG pH 7.42 ABG pCO2 40.7 ABG pO2 48.1 L ABG HCO3 25.9 H ABG O2 Saturation 84.7 L ABG Base Excess 1.4 FiO2 2L Lactic Acid 1.6 12/14/17 12/14/17 12/14/17 03:18 03:18 10:14 Creatine Kinase 57 76 CK-MB (CK-2) 0.45 Troponin I < 0.012 12/14/17 12/14/17 12/14/17 10:14 15:22 15:22 Creatine Kinase 68 CK-MB (CK-2) 0.63 0.50 Troponin I < 0.012 < 0.012 Impressions: Chest X-Ray 12/13/17 22:40 IMPRESSION: Pulmonary vascular congestion. Chest CT 12/14/17 00:00 IMPRESSION: No convincing pneumonia. Assessment & Plan - Diagnosis (1) Hypoxemia Is this a current diagnosis for this admission?: Yes Plan: The pretest probability for PE is very high in this patient, the constellation of shortness of breath, hypoxemia, elevated d-dimer, normal CT chest suggest PE unfortunately CTA could not be done because she has contrast allergy also VQ scan could not be done because there is a shortage of technetium. She is empirically be treated with IV heparin, a 2D echo will be ordered to check for pulmonary pressures (2) Thrombocytopenia Is this a current diagnosis for this admission?: Yes Plan: She has chronic thrombocytopenia this is probably immune mediated, the platelet count is 70,000, will continue to monitor platelet very closely (3) Urinary tract infection Qualifiers: Urinary tract infection type: site unspecified Hematuria presence: without hematuria Qualified Code(s): N39.0 - Urinary tract infection, site not specified Is this a current diagnosis for this admission?: Yes Plan: She had a UTI
[2017-12-14] MEDS ORDERED: HEPARIN SODIUM,PORCINE/D5W 25,000 UNIT/250 ML RTUINJ IV PRN (20:25)
[2017-12-14] MEDS ORDERED: (PENDING PHARMACY ID) (Lisinopril [Zestril] 40 MG) PO SCH (20:30)
[2017-12-14] MEDS ORDERED: HEPARIN SOD (PORCINE) 1,000 UNIT/ML 10 ML VIAL IV ONE (21:00)
[2017-12-14 21:08] LABS: ABSOLUTE EOSINOPHILS # (AUTO) 0.1 10^3/uL (0.0-0.6); ABSOLUTE LYMPHOCYTES (AUTO) 0.9 10^3/uL (0.5-4.7); ABSOLUTE MONOCYTES (AUTO) 0.4 10^3/uL (0.1-1.4); ABSOLUTE NEUT (AUTO) 3.9 10^3/uL (1.7-8.2); BASOPHILS % (AUTO) 0.6 % (0-2); EOSINOPHILS % (AUTO) 1.8 % (0-6); HEMATOCRIT 30.8 % (36.0-47.0); HEMOGLOBIN 10.4 g/dL (12.0-15.5); LYMPHOCYTES % (AUTO) 16.6 % (13-45); MEAN CORPUSCULAR VOLUME 88 fl (80-97); MONOCYTES % (AUTO) 7.7 % (3-13); RED BLOOD COUNT 3.48 10^6/uL (3.72-5.28); RED CELL DISTRIBUTION WIDTH 15.8 % (11.5-14.0); SEGMENTED NEUTROPHILS % (AUTO) 73.3 % (42-78); TOTAL CELLS COUNTED % (AUTO) 100 %; WHITE BLOOD COUNT 5.4 10^3/uL (4.0-10.5)
[2017-12-14 21:09] LABS: INTERNATIONAL RATION (INR) 1.05; PROTHROMBIN TIME 14.2 SEC (11.4-15.4)
[2017-12-14 21:10] LABS: PARTIAL THROMBOPLASTIN TIME 30.9 SEC (23.5-35.8)
[2017-12-14 21:20] LABS: PLATELET COUNT 75 10^3/uL (150-450)
[2017-12-14] MEDS: METOPROLOL SUCCINATE 50 MG TAB.SR.24H PO SCH (21:25)
[2017-12-14] MEDS: LISINOPRIL 10 MG TABLET PO SCH (21:25)
[2017-12-14] MEDS: ATORVASTATIN CALCIUM 80 MG TABLET PO SCH (21:25)
[2017-12-14] MEDS: AZITHROMYCIN 500 MG in DEXTROSE 5%-WATER 250 ML IV SCH (21:28)
[2017-12-14] MEDS ORDERED: HEPARIN SOD (PORCINE) 1,000 UNIT/ML 10 ML VIAL IV PRN (23:26)
[2017-12-15] MEDS: NORMAL SALINE 1000 ML 1,000 ML IV PRN ×2 (03:57→12:32)
[2017-12-15 05:17] LABS: ANION GAP 8 (5-19); BLOOD UREA NITROGEN 17 mg/dL (7-20); CALCIUM 8.4 mg/dL (8.4-10.2); CARBON DIOXIDE 25 mmol/L (22-30); CHLORIDE 112 mmol/L (98-107); GLUCOSE 101 mg/dL (75-110); POTASSIUM 3.6 mmol/L (3.6-5.0); SODIUM 145.1 mmol/L (137-145)
[2017-12-15] MEDS: LISINOPRIL 10 MG TABLET PO SCH (09:26)
[2017-12-15] MEDS: METOPROLOL SUCCINATE 50 MG TAB.SR.24H PO SCH ×2 (09:26→21:29)
[2017-12-15 14:03] LABS: ABSOLUTE EOSINOPHILS # (AUTO) 0.1 10^3/uL (0.0-0.6); ABSOLUTE LYMPHOCYTES (AUTO) 0.8 10^3/uL (0.5-4.7); ABSOLUTE MONOCYTES (AUTO) 0.3 10^3/uL (0.1-1.4); ABSOLUTE NEUT (AUTO) 3.6 10^3/uL (1.7-8.2); BASOPHILS % (AUTO) 0.4 % (0-2); EOSINOPHILS % (AUTO) 2.2 % (0-6); HEMATOCRIT 30.9 % (36.0-47.0); HEMOGLOBIN 10.5 g/dL (12.0-15.5); LYMPHOCYTES % (AUTO) 16.2 % (13-45); MEAN CORPUSCULAR HEMOGLOBIN 29.9 pg (27.0-33.4); MEAN CORPUSCULAR HGB CONC 33.9 g/dL (32.0-36.0); MEAN CORPUSCULAR VOLUME 88 fl (80-97); MONOCYTES % (AUTO) 6.5 % (3-13); RED BLOOD COUNT 3.51 10^6/uL (3.72-5.28); RED CELL DISTRIBUTION WIDTH 15.5 % (11.5-14.0); SEGMENTED NEUTROPHILS % (AUTO) 74.7 % (42-78); TOTAL CELLS COUNTED % (AUTO) 100 %; WHITE BLOOD COUNT 4.8 10^3/uL (4.0-10.5)
[2017-12-15 14:23] LABS: PLATELET COUNT 75 10^3/uL (150-450)
[2017-12-15 14:24] LABS: OVALOCYTES 1+; POIKILOCYTOSIS 2+; SCHISTOCYTES 1+; TOXIC GRANULATION 2+; TOXIC VACUOLATION PRESENT
[2017-12-15 14:25] LABS: HYPOCHROMASIA SLIGHT; PLATELET COMMENT DECREASED
--- NOTE | 2017-12-15 14:56 | PDOC PROGRESS REPORT ---
Subjective Progress Note for:: 12/15/17 Subjective:: Patient was out of bed in recliner chair at the time of my evaluation.Remain on supplemental oxygen at 2L/min via nasal cannula. She admitted to slight shortness of breath but not more than usual. She denied any chest pain, palpitation, or irregular heart beat. No nausea, vomiting, or abdominal pain. There was concern for PE based on her reported dyspnea, hypoxemia, and abnormal D-Dimer. Her lower extremities venous doppler was reported negative, patient do have preadmission thrombocytopenia, and on Prasugrel therapy prior to presentation. She is not a candidate for CTPA due to allergy history and VQ scan material is not available due to nationwide optical dispenser back order. Reason For Visit: PNEUMONIA, UTI, THROMBOCYTOPENIA Physical Exam Vital Signs: Temp Pulse Resp BP Pulse Ox 98.7 F 61 15 111/55 L 100 12/15/17 11:10 12/15/17 11:10 12/15/17 11:10 12/15/17 11:10 12/15/17 11:10 Intake & Output 12/14/17 12/15/17 12/16/17 06:59 06:59 06:59 Intake Total 2251 976 Output Total 500 2100 400 Balance -500 151 576 Weight 82.7 kg 85.6 kg General appearance: PRESENT: mild distress - on supplemental oxygen via nasal cannula at 2L/min, obese Head exam: PRESENT: atraumatic, normocephalic Eye exam: PRESENT: conjunctiva pink, EOMI, PERRLA. ABSENT: scleral icterus Ear exam: PRESENT: normal external ear exam Mouth exam: PRESENT: moist Respiratory exam: PRESENT: clear to auscultation tasneem Cardiovascular exam: PRESENT: RRR. ABSENT: diastolic murmur, rubs, systolic murmur Vascular exam: PRESENT: normal capillary refill. ABSENT: pallor GI/Abdominal exam: PRESENT: normal bowel sounds, soft. ABSENT: distended, guarding, mass, organolmegaly, rebound, tenderness Extremities exam: ABSENT: pedal edema Neurological exam: PRESENT: alert, awake, oriented to person, oriented to place , oriented to time, oriented to situation, CN II-XII grossly intact. ABSENT: motor sensory deficit Psychiatric exam: PRESENT: appropriate affect, normal mood. ABSENT: homicidal ideation, suicidal ideation Skin exam: PRESENT: dry, intact, warm. ABSENT: cyanosis, rash Results Laboratory Results: 12/15/17 04:21 12/14/17 12/15/17 20:53 04:21 WBC 5.4 RBC 3.48 L Hgb 10.4 L Hct 30.8 L MCV 88 MCH 30.0 MCHC 34.0 RDW 15.8 H Plt Count 75 L Seg Neutrophils % 73.3 Lymphocytes % 16.6 Monocytes % 7.7 Eosinophils % 1.8 Basophils % 0.6 Absolute Neutrophils 3.9 Absolute Lymphocytes 0.9 Absolute Monocytes 0.4 Absolute Eosinophils 0.1 Absolute Basophils 0.0 Sodium 145.1 H Potassium 3.6 Chloride 112 H Carbon Dioxide 25 Anion Gap 8 BUN 17 Creatinine 0.90 Est GFR ( Amer) > 60 Est GFR (Non-Af Amer) > 60 Glucose 101 Calcium 8.4 12/14/17 12/14/17 12/14/17 03:18 03:18 10:14 Creatine Kinase 57 76 CK-MB (CK-2) 0.45 Troponin I < 0.012 12/14/17 12/14/17 12/14/17 10:14 15:22 15:22 Creatine Kinase 68 CK-MB (CK-2) 0.63 0.50 Troponin I < 0.012 < 0.012 Impressions: Chest X-Ray 12/13/17 22:40 IMPRESSION: Pulmonary vascular congestion. Chest CT 12/14/17 00:00 IMPRESSION: No convincing pneumonia. Assessment & Plan - Diagnosis (1) Elevated d-dimer Is this a current diagnosis for this admission?: Yes Plan: Etiology is still unclear presently. Her clinical parameters with regard to HR, RR, Oxygen saturation, and examination (no new leg swelling or calf pain, negative venous doppler) are not supportive for her high risk of bleed on high dose heparin infusion at this time. Her thrombocytopenia and anemia suggest looking at her medication Prasugrel side effects. I will request LDH, FDP and Haptoglobin levels. We will continue her on DVT prophylaxis protocol. (2) Hypoxemia requiring supplemental oxygen Is this a current diagnosis for this admission?: Yes Plan: Her chest X ray and CT scan were unrevealing of acute cardiopulmonary condition to suggest cause of her hypoxemia. Continue IV Zithromax and Rocephin coverage with supplemental oxygen therapy for suspected pulmonary system bacterial infection. (3) CAD S/P percutaneous coronary angioplasty Is this a current diagnosis for this admission?: Yes Plan: Hold Prasugrel in view of anemia and thrombocytopenia with elevated D-Dimer. Maintain n Ecotrin therapy. (4) HTN (hypertension) Qualifiers: Hypertension type: essential hypertension Qualified Code(s): I10 - Essential (primary) hypertension Is this a current diagnosis for this admission?: Yes Plan: Continue on current pre-admission medication management. (5) HLD (hyperlipidemia) Qualifiers: Hyperlipidemia type: pure hypercholesterolemia Qualified Code(s): E78.00 - Pure hypercholesterolemia, unspecified; E78.0 - Pure hypercholesterolemia Is this a current diagnosis for this admission?: Yes Plan: Continue on current pre-admission medication management. (6) Diabetes mellitus type 2 in obese Is this a current diagnosis for this admission?: Yes Plan: Continue on current pre-admission medication management. (7) Depression Qualifiers: Depression Type: major depressive disorder Is this a current diagnosis for this admission?: Yes Plan: Continue on current pre-admission medication management. - Time Time Spent with patient: 25-34 minutes Medications reviewed and adjusted accordingly: Yes Anticipated discharge: SNF Within: Other - Inpatient Certification Based on my medical assessment, after consideration of the patient's comorbidities, presenting symptoms, or acuity I expect that the services needed warrant INPATIENT care.: Yes I certify that my determination is in accordance with my understanding of Medicare's requirements for reasonable and necessary INPATIENT services [42 CFR 412.3e].: Yes Medical Necessity: Need Close Monitoring Due to Risk of Patient Decompensation, Need For Continuous Telemetry Monitoring, Need for Nebulizer Therapy and Monitoring of Response, Need for IV Antibiotics, Risk of Complication if Not Cared For in Hospital Post Hospital Care: D/C or Transfer Summary - Plan Summary Plan Summary: See covering attending physician orders. Follow up on urine and blood culture findings.
[2017-12-15] MEDS: CEFTRIAXONE SODIUM 1,000 MG in DEXTROSE 5%-WATER 50 ML IV SCH (17:27)
[2017-12-15] MEDS: AZITHROMYCIN 500 MG in DEXTROSE 5%-WATER 250 ML IV SCH (21:29)
[2017-12-15] MEDS: ATORVASTATIN CALCIUM 80 MG TABLET PO SCH (21:29)
[2017-12-16] MEDS: NORMAL SALINE 1000 ML 1,000 ML IV PRN (01:00)
[2017-12-16 05:41] LABS: ANION GAP 9 (5-19); BLOOD UREA NITROGEN 14 mg/dL (7-20); CALCIUM 8.6 mg/dL (8.4-10.2); CARBON DIOXIDE 24 mmol/L (22-30); CHLORIDE 113 mmol/L (98-107); GLUCOSE 94 mg/dL (75-110); POTASSIUM 3.6 mmol/L (3.6-5.0); SODIUM 145.9 mmol/L (137-145)
[2017-12-16] MEDS: METOPROLOL SUCCINATE 50 MG TAB.SR.24H PO SCH ×2 (09:03→22:01)
[2017-12-16] MEDS: LISINOPRIL 10 MG TABLET PO SCH (09:03)
[2017-12-16 09:57] LABS: ABSOLUTE EOSINOPHILS # (AUTO) 0.1 10^3/uL (0.0-0.6); ABSOLUTE LYMPHOCYTES (AUTO) 0.9 10^3/uL (0.5-4.7); ABSOLUTE MONOCYTES (AUTO) 0.4 10^3/uL (0.1-1.4); ABSOLUTE NEUT (AUTO) 2.6 10^3/uL (1.7-8.2); BASOPHILS % (AUTO) 0.7 % (0-2); EOSINOPHILS % (AUTO) 1.6 % (0-6); HEMATOCRIT 31.8 % (36.0-47.0); HEMOGLOBIN 10.4 g/dL (12.0-15.5); LYMPHOCYTES % (AUTO) 23.2 % (13-45); MEAN CORPUSCULAR HEMOGLOBIN 29.4 pg (27.0-33.4); MEAN CORPUSCULAR HGB CONC 32.8 g/dL (32.0-36.0); MEAN CORPUSCULAR VOLUME 90 fl (80-97); MONOCYTES % (AUTO) 9.1 % (3-13); RED BLOOD COUNT 3.56 10^6/uL (3.72-5.28); RED CELL DISTRIBUTION WIDTH 16.1 % (11.5-14.0); SEGMENTED NEUTROPHILS % (AUTO) 65.4 % (42-78); TOTAL CELLS COUNTED % (AUTO) 100 %
[2017-12-16 10:26] LABS: PLATELET COUNT 73 10^3/uL (150-450)
--- NOTE | 2017-12-16 16:54 | PDOC PROGRESS REPORT ---
Subjective Progress Note for:: 12/16/17 Subjective:: She denied any chest pain or difficulty with breathing as long as she is remain on supplemental oxygen via nasal cannula at 2L/min. No headache or dizziness. No abdominal pain, nausea or vomiting. Tolerating oral feeding. Reason For Visit: PNEUMONIA, UTI, THROMBOCYTOPENIA Physical Exam Vital Signs: Temp Pulse Resp BP Pulse Ox 99.1 F 50 L 20 121/49 L 100 12/16/17 15:13 12/16/17 15:13 12/16/17 15:13 12/16/17 15:13 12/16/17 15:13 Intake & Output 12/15/17 12/16/17 12/17/17 06:59 06:59 06:59 Intake Total 2251 3016 414 Output Total 2100 1800 1000 Balance 151 1216 -586 Weight 85.6 kg 86.2 kg Results Laboratory Results: 12/16/17 04:37 12/16/17 04:37 12/16/17 12/16/17 04:37 04:37 WBC 4.0 RBC 3.56 L Hgb 10.4 L Hct 31.8 L MCV 90 MCH 29.4 MCHC 32.8 RDW 16.1 H Plt Count 73 L Seg Neutrophils % 65.4 Lymphocytes % 23.2 Monocytes % 9.1 Eosinophils % 1.6 Basophils % 0.7 Absolute Neutrophils 2.6 Absolute Lymphocytes 0.9 Absolute Monocytes 0.4 Absolute Eosinophils 0.1 Absolute Basophils 0.0 Sodium 145.9 H Potassium 3.6 Chloride 113 H Carbon Dioxide 24 Anion Gap 9 BUN 14 Creatinine 0.84 Est GFR ( Amer) > 60 Est GFR (Non-Af Amer) > 60 Glucose 94 Calcium 8.6 12/14/17 12/14/17 12/14/17 03:18 03:18 10:14 Creatine Kinase 57 76 CK-MB (CK-2) 0.45 Troponin I < 0.012 12/14/17 12/14/17 12/14/17 10:14 15:22 15:22 Creatine Kinase 68 CK-MB (CK-2) 0.63 0.50 Troponin I < 0.012 < 0.012 Impressions: Chest X-Ray 12/13/17 22:40 IMPRESSION: Pulmonary vascular congestion. Chest CT 12/14/17 00:00 IMPRESSION: No convincing pneumonia. Assessment & Plan - Diagnosis (1) Elevated d-dimer Is this a current diagnosis for this admission?: Yes Plan: We will consider possible transfer to [facility] with VQ scan capability for testing tomorrow. (2) Hypoxemia requiring supplemental oxygen Is this a current diagnosis for this admission?: Yes Plan: Continue current medical management. Follow up on possible transfer to [facility] with VQ scan capability for testing. (3) CAD S/P percutaneous coronary angioplasty Is this a current diagnosis for this admission?: Yes Plan: Continue current medication management. (4) HTN (hypertension) Qualifiers: Hypertension type: essential hypertension Qualified Code(s): I10 - Essential (primary) hypertension Is this a current diagnosis for this admission?: Yes Plan: Continue current medication management. (5) HLD (hyperlipidemia) Qualifiers: Hyperlipidemia type: pure hypercholesterolemia Qualified Code(s): E78.00 - Pure hypercholesterolemia, unspecified; E78.0 - Pure hypercholesterolemia Is this a current diagnosis for this admission?: Yes Plan: Continue current medication management. (6) Diabetes mellitus type 2 in obese Is this a current diagnosis for this admission?: Yes Plan: Continue current medication management. (7) Depression Qualifiers: Depression Type: major depressive disorder Is this a current diagnosis for this admission?: Yes Plan: Continue current medication management. (8) UTI (urinary tract infection), bacterial Is this a current diagnosis for this admission?: Yes Plan: Urine culture revealed two species of gram negative rods. Continue IV Rocephin and Zithromax coverage. - Time Time Spent with patient: 25-34 minutes Medications reviewed and adjusted accordingly: Yes Anticipated discharge: SNF Within: Other - Inpatient Certification Based on my medical assessment, after consideration of the patient's comorbidities, presenting symptoms, or acuity I expect that the services needed warrant INPATIENT care.: Yes I certify that my determination is in accordance with my understanding of Medicare's requirements for reasonable and necessary INPATIENT services [42 CFR 412.3e].: Yes Medical Necessity: Need For Continuous Telemetry Monitoring, Risk of Complication if Not Cared For in Hospital Post Hospital Care: D/C or Transfer Summary - Plan Summary Plan Summary: Continue current medication management. Follow up on efforts at transfer to [facility] with VQ scan capability for completion of test.
[2017-12-16] MEDS: CEFTRIAXONE SODIUM 1,000 MG in DEXTROSE 5%-WATER 50 ML IV SCH (18:05)
[2017-12-16] MEDS ORDERED: ACETAMINOPHEN 325 MG TABLET PO PRN (19:38)
[2017-12-16] MEDS: AZITHROMYCIN 500 MG in DEXTROSE 5%-WATER 250 ML IV SCH (22:02)
[2017-12-16] MEDS: ATORVASTATIN CALCIUM 80 MG TABLET PO SCH (22:02)
[2017-12-17 05:39] LABS: HEMATOCRIT 30.2 % (36.0-47.0); HEMOGLOBIN 10.2 g/dL (12.0-15.5); MEAN CORPUSCULAR HGB CONC 33.9 g/dL (32.0-36.0); MEAN CORPUSCULAR VOLUME 89 fl (80-97); RED BLOOD COUNT 3.41 10^6/uL (3.72-5.28); RED CELL DISTRIBUTION WIDTH 15.6 % (11.5-14.0); WHITE BLOOD COUNT 3.7 10^3/uL (4.0-10.5)
[2017-12-17 06:17] LABS: ANION GAP 9 (5-19); BLOOD UREA NITROGEN 14 mg/dL (7-20); CALCIUM 8.5 mg/dL (8.4-10.2); CARBON DIOXIDE 24 mmol/L (22-30); CHLORIDE 112 mmol/L (98-107); GLUCOSE 82 mg/dL (75-110); POTASSIUM 3.5 mmol/L (3.6-5.0); SODIUM 144.9 mmol/L (137-145)
[2017-12-17 06:33] LABS: PLATELET COUNT 68 10^3/uL (150-450)
--- NOTE | 2017-12-17 08:21 | XCELERA REPORT ---
[address] [address] Lower Extremity Venous Evaluation Procedure: Color flow and duplex imaging bilaterally of the veins of the lower extremities as well as the Common Femoral veins. Right Sided Venous Evaluation Study compromised due to the presence of bandaging from knee to foot. Left Sided Venous Evaluation Study compromised due to the presence of bandaging from knee to foot. Interpretation Summary No duplex evidence of DVT or obstruction in the bilateral lower extremities. Name: LOLIS BELTRÁN Age: 72 yrs Gender: Female : 1945 Patient Status: Inpatient Patient Location: [address] [place] [address] Study Date: 12/14/2017 06:37 PM Reason For Study: bilateral lower extremity edema Ordering Physician: GREY VARELA Performed By: Susanne Larios : GREY VARELA > Dudley Dumont
[2017-12-17] MEDS: METOPROLOL SUCCINATE 50 MG TAB.SR.24H PO SCH ×2 (11:15→22:13)
[2017-12-17] MEDS: LISINOPRIL 10 MG TABLET PO SCH (11:15)
--- NOTE | 2017-12-17 17:49 | XCELERA REPORT ---
[address] [address] Transthoracic Echocardiogram Report Name: LOLIS BELTRÁN Age: 72 yrs Gender: Female : 1945 Patient Status: Inpatient Patient Location: [address] [place] [address] Study Date: 12/17/2017 10:37 AM Procedure: A complete two-dimensional transthoracic echocardiogram was performed (2D, M-mode, spectral and color flow Doppler). The study was technically adequate with some images being suboptimal in quality. Reason For Study: PULMONARY HTN Ordering Physician: GREY VARELA Performed By: Christa Marinelli Interpretation Summary The left ventricular ejection fraction is normal. There is borderline concentric left ventricular hypertrophy. The left ventricle is grossly normal size. Doppler measurements suggest impaired left ventricular relaxation, which is associated with grade I/IV or mild diastolic dysfunction Wall motion cannot be accurately commented on, but no definite regional wall motion abnormalities noted. The right ventricle is mildly dilated. The left atrial size is normal. The right atrium is normal in size There is a trace amount of mitral regurgitation There is no mitral valve stenosis. No aortic regurgitation is present. There is no aortic valve stenosis There is a mild amount of tricuspid regurgitation There is mild to moderate pulmonary hypertension by echo Right ventricular systolic pressure is estimated to be elevated at 40-50mmHg. The aortic root is not well visualized but is probably normal size. The inferior vena cava appeared normal and decreased < 50% with respiration (RAP 10-15 mmHg) There is no pericardial effusion. MMode/2D Measurements & Calculations RVDd: 2.8 cm LVIDd: 5.8 cm FS: 35.7 % Ao root diam: 2.9 cm IVSd: 0.85 cm LVIDs: 3.7 cm EDV(Teich): 163.6 ml Ao root area: 6.5 cm2 LVPWd: 0.91 cm ESV(Teich): 58.1 ml EF(Teich): 64.5 % Doppler Measurements & Calculations MV E max babs: MV dec slope: Ao V2 max: LV V1 max P.2 cm/sec 125.2 cm/sec 3.8 mmHg MV A max babs: 488.1 cm/sec2 Ao max PG: LV V1 max: 95.0 cm/sec MV dec time: 0.16 sec6.3 mmHg 97.2 cm/sec MV E/A: 0.80 LV dP/dt: 2113 mmHg/s PA V2 max: TR max babs: 92.4 cm/sec 259.0 cm/sec PA max P.4 mmHg TR max P.8 mmHg Left Ventricle The left ventricle is grossly normal size. There is borderline concentric left ventricular hypertrophy. The left ventricular ejection fraction is normal. Doppler measurements suggest impaired left ventricular relaxation, which is associated with grade I/IV or mild diastolic dysfunction. Wall motion cannot be accurately commented on, but no definite regional wall motion abnormalities noted. Right Ventricle The right ventricle is mildly dilated. There is normal right ventricular wall thickness. The right ventricular systolic function is normal. Atria The right atrium is normal in size. The left atrial size is normal. Interarterial septum not well visualized and not well dopplered. Cannot comment on ASD/PFO presence. Mitral Valve The mitral valve is grossly normal. There is no mitral valve stenosis. There is a trace amount of mitral regurgitation. Aortic Valve The aortic valve is grossly normal. There is no aortic valve stenosis. No aortic regurgitation is present. Tricuspid Valve The tricuspid valve is not well visualized, but is grossly normal. There is no tricuspid stenosis. There is a mild amount of tricuspid regurgitation. There is mild to moderate pulmonary hypertension by echo. Right ventricular systolic pressure is estimated to be elevated at 40-50mmHg. Pulmonic Valve The pulmonic valve is not well visualized. Great Vessels The aortic root is not well visualized but is probably normal size. The inferior vena cava appeared normal and decreased < 50% with respiration (RAP 10-15 mmHg). Effusions There is no pericardial effusion. : GREY VARELA > Jimmie Jeronimo
[2017-12-17] MEDS ORDERED: OXYCODONE-ACETAMINOPHEN 5-325 MG TABLET PO PRN (18:59)
[2017-12-17] MEDS ORDERED: ONDANSETRON 4 MG TAB.RAPDIS PO PRN (19:23)
[2017-12-17] MEDS: CEFTRIAXONE SODIUM 1,000 MG in DEXTROSE 5%-WATER 50 ML IV SCH (19:32)
--- NOTE | 2017-12-17 20:25 | PDOC PROGRESS REPORT ---
Subjective Progress Note for:: 12/17/17 Subjective:: Patient was admitted for the management of hypoxemia felt to be from pulmonary embolism, CTA chest could not be done because of contrast allergy, she was empirically started on IV heparin but because of severe thrombocytopenia the IV heparin was discontinued. Urine culture grew Escherica specie.She will be premedicated with Solu-Medrol, antihistamine, and a CTA chest will be ordered Reason For Visit: PNEUMONIA, UTI, THROMBOCYTOPENIA Physical Exam Vital Signs: Temp Pulse Resp BP Pulse Ox 98.5 F 62 18 117/57 L 99 12/17/17 15:37 12/17/17 19:00 12/17/17 15:37 12/17/17 15:37 12/17/17 15:37 Intake & Output 12/16/17 12/17/17 12/18/17 06:59 06:59 06:59 Intake Total 3016 1004 768 Output Total 1800 2450 1150 Balance 1216 1446 -382 Weight 86.2 kg 87.7 kg General appearance: PRESENT: no acute distress Eye exam: PRESENT: PERRLA Respiratory exam: PRESENT: clear to auscultation tasneem Cardiovascular exam: PRESENT: +S1, +S2 GI/Abdominal exam: PRESENT: soft Neurological exam: PRESENT: alert Results Laboratory Results: 12/17/17 04:10 12/17/17 04:10 12/17/17 12/17/17 04:10 04:10 WBC 3.7 L RBC 3.41 L Hgb 10.2 L Hct 30.2 L MCV 89 MCH 30.0 MCHC 33.9 RDW 15.6 H Plt Count 68 L Sodium 144.9 Potassium 3.5 L Chloride 112 H Carbon Dioxide 24 Anion Gap 9 BUN 14 Creatinine 0.81 Est GFR ( Amer) > 60 Est GFR (Non-Af Amer) > 60 Glucose 82 Calcium 8.5 12/14/17 12/14/17 12/14/17 03:18 03:18 10:14 Creatine Kinase 57 76 CK-MB (CK-2) 0.45 Troponin I < 0.012 12/14/17 12/14/17 12/14/17 10:14 15:22 15:22 Creatine Kinase 68 CK-MB (CK-2) 0.63 0.50 Troponin I < 0.012 < 0.012 Impressions: Chest X-Ray 11/08/18 22:40 IMPRESSION: Pulmonary vascular congestion. Chest CT 12/14/17 00:00 IMPRESSION: No convincing pneumonia. 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
[2017-12-17] MEDS: AZITHROMYCIN 500 MG in DEXTROSE 5%-WATER 250 ML IV SCH (22:13)
[2017-12-17] MEDS: ATORVASTATIN CALCIUM 80 MG TABLET PO SCH (22:13)
[2017-12-18] MEDS ORDERED: DIPHENHYDRAMINE HCL 50 MG/ML VIAL IV PRN (05:00)
[2017-12-18] MEDS ORDERED: FAMOTIDINE INJ/PF 20 MG/2 ML SDV IV PRN (05:00)
[2017-12-18] MEDS ORDERED: METHYLPREDNISOLONE INJ 125 MG/2 ML SDV IV PRN (05:00)
[2017-12-18] MEDS: LISINOPRIL 10 MG TABLET PO SCH (09:19)
[2017-12-18] MEDS: METOPROLOL SUCCINATE 50 MG TAB.SR.24H PO SCH ×2 (09:19→21:51)
--- NOTE | 2017-12-18 15:00 | RADIOLOGY REPORT (SQ) ---
EXAM DESCRIPTION: CHEST 2 VIEWS COMPLETED DATE/TIME: 12/18/2017 2:43 pm REASON FOR STUDY: HYPOXEMIA COMPARISON: Chest film 12/13/2017 CT chest 12/14/2017 EXAM PARAMETERS: NUMBER OF VIEWS: two views TECHNIQUE: Digital Frontal and Lateral radiographic views of the chest acquired. RADIATION DOSE: NA LIMITATIONS: none FINDINGS: LUNGS AND PLEURA: Since the prior exams, patient has developed trace bilateral pleural eff usions in the posterior costophrenic sulci. No acute infiltrates. No pneumothorax. MEDIASTINUM AND HILAR STRUCTURES: No masses or contour abnormalities. HEART AND VASCULAR STRUCTURES: Heart normal size. No evidence for failure. BONES: No acute findings. HARDWARE: None in the chest. OTHER: No other significant finding. IMPRESSION: Trace bilateral pleural effusions TECHNICAL DOCUMENTATION: JOB ID: [id number] [employer]- All Rights Reserved Reading location - IP/workstation name: [email or web address]
--- NOTE | 2017-12-18 15:31 | Progress Note ---
Provider Note Provider Note: ID Consult Note Asked to review patient's chart by Pharmacy . Pt not seen or examined. Reviewed VS, CT and CXR imaging and corresponding radiology reports, microbiology results , provider reports. Ms Hernadez is a 72 year old woman who presented overnight between 12/13 and 12/14 with c/o fever and SOB and was brought by EMS to the ED. Pt reported coughing episodes over 2 weeks. She was found to have tachypnea and decreased oxygen saturation. Per ED provider report, pt reported "some dysuria" in addition to the above. She was initially suspected of having communtiy acquired pneumonia or a urinary tract infection based on her reported symptoms. Objectively pt had no fever. Breath sounds initially were appreciated to be decreased. Labs include normal WBC count, thrombocytopenia, SCr ~0.9, unremarkable LFTs. UCx grew >100k cfu E coli species. BCx negative. Pt had CXR read as vascular congestion and non-contrast chest CT that showed no convincing evidence of a pneumonia. Repeat CXR was read as showing no acute infiltrates, development of trace b/l effusions. Impression/Recommendations - With lack of convincing radiographic evidence of pneumonia, consideration should be given to discontinuing Rocephin/azithromycin. Pt actually has already received the minimum duration of therapy for community acquired pneumonia ( today being day 5 of both). - Per notes, pt reported "some dysuria" and has been suspected of having UTI. Can discontinue Rocephin and continue Keflex or amoxicillin for another 2 days ( total of 7 days) of therapy. Lionel Marte MD [facility] Infectious Diseases pager [phone]
--- NOTE | 2017-12-18 15:35 | RADIOLOGY REPORT (SQ) ---
EXAM DESCRIPTION: NM LUNG VENT/PERF SCAN COMPLETED DATE/TIME: 12/18/2017 3:10 pm REASON FOR STUDY: suspect PE ,hypoxemia COMPARISON: Chest films 12/13/2017, 12/18/2017 CT chest without contrast 12/14/2017 RADIONUCLIDE AND DOSE: 4.6 millicuries TC-99m MAA Intravenous 28.2 millicuries TC-99m DTPA Inhaled aerosol TECHNIQUE: Eight views of the lungs acquired post ventilation of DTPA aerosol. Eight matching views of the lungs acquired following injection of MAA. LIMITATIONS: None. FINDINGS: VENTILATION: Symmetric and homogeneous distribution of DTPA aerosol during ventilatory pha se. No significant areas of photopenia. PERFUSION: Perfusion images with normal homogenous activity and no wedge-shaped or segmental defects. No ventilation-perfusion mismatches. OTHER: No other significant finding. IMPRESSION: NORMAL VENTILATION-PERFUSION LUNG SCAN. NEGATIVE FOR PULMONARY EMBOLI. TECHNICAL DOCUMENTATION: JOB ID: [id number] [employer]- All Rights Reserved Reading location - IP/workstation name: [email or web address]
[2017-12-18] MEDS: CEFTRIAXONE SODIUM 1,000 MG in DEXTROSE 5%-WATER 50 ML IV SCH (17:05)
--- NOTE | 2017-12-18 19:35 | PDOC PROGRESS REPORT ---
Subjective Progress Note for:: 12/18/17 Subjective:: The VQ scan was normal, this virtually rule out PE, the hypoxemia is probably an error the ABG is probably venous gas, the urine culture grew E. coli, will discontinue IV antibiotic, she does not have pneumonia she does not of hypoxemia the pulse oximetry remains normal Reason For Visit: PNEUMONIA, UTI, THROMBOCYTOPENIA Physical Exam Vital Signs: Temp Pulse Resp BP Pulse Ox 98.2 F 52 L 16 134/57 H 100 12/18/17 15:47 12/18/17 15:47 12/18/17 15:47 12/18/17 15:47 12/18/17 15:47 Intake & Output 12/17/17 12/18/17 12/19/17 06:59 06:59 06:59 Intake Total 1254 818 287 Output Total 2450 2150 1450 Balance -1196 -7892 -1163 Weight 87.7 kg 87.7 kg General appearance: PRESENT: no acute distress Eye exam: PRESENT: PERRLA Respiratory exam: PRESENT: clear to auscultation tasneem Cardiovascular exam: PRESENT: +S1, +S2 GI/Abdominal exam: PRESENT: soft Neurological exam: PRESENT: alert Results Laboratory Results: 12/17/17 04:10 12/17/17 04:10 12/14/17 12/14/17 12/14/17 03:18 03:18 10:14 Creatine Kinase 57 76 CK-MB (CK-2) 0.45 Troponin I < 0.012 12/14/17 12/14/17 12/14/17 10:14 15:22 15:22 Creatine Kinase 68 CK-MB (CK-2) 0.63 0.50 Troponin I < 0.012 < 0.012 Impressions: Chest CT 12/14/17 00:00 IMPRESSION: No convincing pneumonia. Chest X-Ray 12/18/17 00:00 IMPRESSION: Trace bilateral pleural effusions Lung Scan-VQ NM 12/18/17 00:00 IMPRESSION: NORMAL VENTILATION-PERFUSION LUNG SCAN. NEGATIVE FOR PULMONARY EMBOLI. Assessment & Plan - Diagnosis (1) E. coli UTI Is this a current diagnosis for this admission?: Yes Plan: She does not of hypoxemia the ABG is most likely wrong, the pulse oximetry demonstrated normal oxygen saturation throughout hospital stay. The CT chest is normal (2) Urinary tract infection Qualifiers: Urinary tract infection type: site unspecified Hematuria presence: without hematuria Qualified Code(s): N39.0 - Urinary tract infection, site not specified Is this a current diagnosis for this admission?: Yes (3) Thrombocytopenia Is this a current diagnosis for this admission?: Yes (4) CAD S/P percutaneous coronary angioplasty Is this a current diagnosis for this admission?: Yes (5) Diabetes mellitus type 2 in obese Is this a current diagnosis for this admission?: Yes (6) HLD (hyperlipidemia) Qualifiers: Hyperlipidemia type: pure hypercholesterolemia Qualified Code(s): E78.00 - Pure hypercholesterolemia, unspecified; E78.0 - Pure hypercholesterolemia Is this a current diagnosis for this admission?: Yes
[2017-12-18] MEDS ORDERED: (PENDING PHARMACY ID) (Doxepin Hcl [Silenor] 6 MG) PO PRN (19:39)
[2017-12-18 20:36] LABS: ABSOLUTE EOSINOPHILS # (AUTO) 0.1 10^3/uL (0.0-0.6); ABSOLUTE LYMPHOCYTES (AUTO) 0.9 10^3/uL (0.5-4.7); ABSOLUTE MONOCYTES (AUTO) 0.3 10^3/uL (0.1-1.4); ABSOLUTE NEUT (AUTO) 3.2 10^3/uL (1.7-8.2); BASOPHILS % (AUTO) 0.6 % (0-2); EOSINOPHILS % (AUTO) 2.2 % (0-6); HEMATOCRIT 32.5 % (36.0-47.0); LYMPHOCYTES % (AUTO) 19.2 % (13-45); MEAN CORPUSCULAR HEMOGLOBIN 29.7 pg (27.0-33.4); MEAN CORPUSCULAR HGB CONC 33.8 g/dL (32.0-36.0); MEAN CORPUSCULAR VOLUME 88 fl (80-97); MONOCYTES % (AUTO) 7.6 % (3-13); RED CELL DISTRIBUTION WIDTH 15.9 % (11.5-14.0); SEGMENTED NEUTROPHILS % (AUTO) 70.4 % (42-78); TOTAL CELLS COUNTED % (AUTO) 100 %; WHITE BLOOD COUNT 4.6 10^3/uL (4.0-10.5)
[2017-12-18 20:43] LABS: ALANINE AMINOTRANSFERASE 18 U/L (9-52); ALBUMIN 3.4 g/dL (3.5-5.0); ALKALINE PHOSPHATASE 84 U/L (38-126); ANION GAP 11 (5-19); ASPARTATE AMINO TRANSFERASE 17 U/L (14-36); BILIRUBIN,DIRECT 0.2 mg/dL (0.0-0.4); BILIRUBIN,TOTAL 0.4 mg/dL (0.2-1.3); BLOOD UREA NITROGEN 12 mg/dL (7-20); CARBON DIOXIDE 27 mmol/L (22-30); CHLORIDE 108 mmol/L (98-107); GLUCOSE 134 mg/dL (75-110); POTASSIUM 3.7 mmol/L (3.6-5.0)
[2017-12-18 21:11] LABS: PLATELET COUNT 95 10^3/uL (150-450)
[2017-12-18] MEDS: ATORVASTATIN CALCIUM 80 MG TABLET PO SCH (21:51)
[2017-12-18] MEDS ORDERED: EZETIMIBE 10 MG TABLET PO SCH (22:00)
[2017-12-19 06:34] LABS: HEMATOCRIT 30.7 % (36.0-47.0); HEMOGLOBIN 10.5 g/dL (12.0-15.5); MEAN CORPUSCULAR HEMOGLOBIN 29.9 pg (27.0-33.4); MEAN CORPUSCULAR HGB CONC 34.2 g/dL (32.0-36.0); MEAN CORPUSCULAR VOLUME 87 fl (80-97); RED BLOOD COUNT 3.52 10^6/uL (3.72-5.28); RED CELL DISTRIBUTION WIDTH 15.5 % (11.5-14.0); WHITE BLOOD COUNT 4.8 10^3/uL (4.0-10.5)
[2017-12-19 07:56] LABS: PLATELET COUNT 89 10^3/uL (150-450)
[2017-12-19] MEDS: LISINOPRIL 10 MG TABLET PO SCH (10:16)
[2017-12-19] MEDS: METOPROLOL SUCCINATE 50 MG TAB.SR.24H PO SCH (10:18)
--- NOTE | 2017-12-19 15:35 | PDOC DISCHARGE SUMMARY ---
General - Admit/Disc Date/PCP Admission Date/Primary Care Provider: 12/14/17 01:19 GREY VARELA MD Discharge Date: 12/19/17 - Discharge Diagnosis (1) E. coli UTI Is this a current diagnosis for this admission?: Yes (2) Urinary tract infection Is this a current diagnosis for this admission?: Yes (3) Thrombocytopenia Is this a current diagnosis for this admission?: Yes (4) CAD S/P percutaneous coronary angioplasty Is this a current diagnosis for this admission?: Yes (5) Diabetes mellitus type 2 in obese Is this a current diagnosis for this admission?: Yes (6) HLD (hyperlipidemia) Is this a current diagnosis for this admission?: Yes (7) Lab findings of hypoxemia Is this a current diagnosis for this admission?: Yes Summary: This is not true hypoxemia, it is a venous blood gas - Additional Information Resuscitation Status: Full Code Home Medications: Aspirin [Ecotrin 81 mg EC Tablet] 81 mg PO DAILY 12/14/17 Atorvastatin Calcium [Lipitor 80 mg Tablet] 80 mg PO QHS 12/14/17 Doxepin HCl [Silenor] 6 mg PO HSP PRN 12/14/17 Ezetimibe [Zetia 10 mg Tablet] 10 mg PO DAILY 12/14/17 Hydrochlorothiazide [Hydrodiuril 12.5 mg Tablet] 12.5 mg PO DAILY 12/14/17 Lisinopril [Zestril] 40 mg PO DAILY 12/14/17 Acetaminophen [Tylenol 325 mg Tablet] 650 mg PO Q4HP PRN tablet 12/19/17 Metoprolol Succinate [Toprol Xl 50 mg Tab.sr] 50 mg PO DAILY #90 12/19/17 History of Present Illness History of Present Illness: LOLIS BELTRÁN is a 72 year old female, She has history of coronary artery disease, she came to the emergency room for evaluation of cough shortness of breath for the last 2 weeks, in the emergency room it was felt that she has pneumonia, The chest x-ray was interpreted as pulmonary vascular congestion, the ABG on FiO2 2 L showed PO2 of 48, this was arterial blood, she has grossly abnormal urinalysis does suggest UTI, there was no leukocytosis. I was not overly convinced that she has pneumonia on the basis of the chest x-ray and also the fact that she has no fever with no leukocytosis, I requested for CT chest without contrast, this was normal. I suspected that she has PE based on constellation of symptoms including shortness of breath severe hypoxemia and also elevated d-dimer. Unfortunately she has dye/contrast allergy CTA chest could not be done because of this allergy issue also technetium isotope use for a VQ scan [place] the [place], the pretest probability for PE is very high, I requested for venous Doppler of the leg to be done it was negative for deep vein thrombosis she will empirically be treated for PE with IV heparin Hospital Course Hospital Course: She was admitted into the hospital for management of pneumonia, when she presented to the ER it was felt that she has pneumonia on the basis of the chest x-ray findings, I was not convinced that she has pneumonia, CT chest was done, there was normal which virtually rule out pneumonia, ABG was done, it suggested that she has hypoxemia, with a PO2 in the low 40 because of the hypoxemia and a normal CT chest PE was suspected as the potential etiology of the hypoxemia, unfortunately CTA chest could not be done because of contrast allergy and we could not get a VQ scan done because there was shortage of technetium. 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 She also was empirically treated with IV antibiotic for pneumonia UTI, the urine culture grew E. coli and also E-Fergunoa.. She had VQ scan done yesterday this was normal, it was felt that the hypoxemia is probably factitious , throughout hospital stay the pulse oximetry revealed normal oxygen saturation suggesting that the hypoxemia is probably not true. So pneumonia PE and hypoxemia is rule out in this patient the ABG is most likely venous blood gas are not a true arterial blood gas Physical Exam Vital Signs: Temp Pulse Resp BP Pulse Ox 98.3 F 53 L 18 120/54 L 100 12/19/17 12:03 12/19/17 12:03 12/19/17 12:03 12/19/17 12:03 12/19/17 12:03 Intake & Output 12/18/17 12/19/17 12/20/17 06:59 06:59 06:59 Intake Total 1068 337 345 Output Total 2150 1700 400 Balance -1082 -1363 -55 Weight 87.7 kg 86.6 kg General appearance: PRESENT: no acute distress, well-developed, well-nourished Head exam: PRESENT: atraumatic, normocephalic Eye exam: PRESENT: conjunctiva pink, EOMI, PERRLA Ear exam: PRESENT: normal external ear exam Mouth exam: PRESENT: moist, tongue midline Neck exam: PRESENT: full ROM Respiratory exam: PRESENT: clear to auscultation tasneem Cardiovascular exam: PRESENT: RRR, +S2 Pulses: PRESENT: normal dorsalis pedis pul, +2 pedal pulses bilateral Vascular exam: PRESENT: normal capillary refill GI/Abdominal exam: PRESENT: normal bowel sounds, soft Rectal exam: PRESENT: deferred Neurological exam: PRESENT: alert, awake, oriented to person, oriented to place , oriented to time, oriented to situation, CN II-XII grossly intact Psychiatric exam: PRESENT: appropriate affect, normal mood Skin exam: PRESENT: dry, intact, warm Results Laboratory Results: 12/19/17 04:36 12/18/17 20:12 12/18/17 12/18/17 12/19/17 20:12 20:12 04:36 WBC 4.6 4.8 RBC 3.70 L 3.52 L Hgb 11.0 L 10.5 L Hct 32.5 L 30.7 L MCV 88 87 MCH 29.7 29.9 MCHC 33.8 34.2 RDW 15.9 H 15.5 H Plt Count 95 L 89 L Seg Neutrophils % 70.4 Lymphocytes % 19.2 Monocytes % 7.6 Eosinophils % 2.2 Basophils % 0.6 Absolute Neutrophils 3.2 Absolute Lymphocytes 0.9 Absolute Monocytes 0.3 Absolute Eosinophils 0.1 Absolute Basophils 0.0 Sodium 146.0 H Potassium 3.7 Chloride 108 H Carbon Dioxide 27 Anion Gap 11 BUN 12 Creatinine 0.93 Est GFR ( Amer) > 60 Est GFR (Non-Af Amer) 59 L Glucose 134 H Calcium 9.0 Total Bilirubin 0.4 AST 17 ALT 18 Alkaline Phosphatase 84 Total Protein 6.0 L Albumin 3.4 L 12/14/17 03:39 Blood Blood Culture - Final NO GROWTH IN 5 DAYS 12/14/17 12/14/17 12/14/17 03:18 03:18 10:14 Creatine Kinase 57 76 CK-MB (CK-2) 0.45 Troponin I < 0.012 1112/14/17 12/14/17 10:14 15:22 15:22 Creatine Kinase 68 CK-MB (CK-2) 0.63 0.50 Troponin I < 0.012 < 0.012 Impressions: Chest CT 12/14/17 00:00 IMPRESSION: No convincing pneumonia. Chest X-Ray 12/18/17 00:00 IMPRESSION: Trace bilateral pleural effusions Lung Scan-VQ NM 12/18/17 00:00 IMPRESSION: NORMAL VENTILATION-PERFUSION LUNG SCAN. NEGATIVE FOR PULMONARY EMBOLI. Qualifiers - * PATIENT BEING DISCHARGED WITH ANY OF THE FOLLOWING DIAGNOSIS: No VTE patient discharged on overlapping Therapy?: Yes
[2017-12-19 16:37] VITALS: BP 127/50
--- NOTE | 2017-12-20 09:03 | EKG REPORT ---
SEVERITY:- OTHERWISE NORMAL ECG - SINUS BRADYCARDIA : Confirmed by: Jimmie Jeronimo 20-Dec-2017 09:01:57
== END 2017-12-19 17:00 | disposition home or self-care (01) | DRG 690 ==
LOC: ER 22:22 → EH 12-14 01:19 → 3W 12-14 04:24
PROVIDERS: ADMIT Internal Medicine; ATTEND Internal Medicine
DX: N39.0 Urinary tract infection, site not specified (principal); B96.20 Unspecified Escherichia coli [E. coli] as the cause of diseases classified elsewhere; R79.1 Abnormal coagulation profile; E11.9 Type 2 diabetes mellitus without complications; E78.00 Pure hypercholesterolemia, unspecified; E78.5 Hyperlipidemia, unspecified; D69.6 Thrombocytopenia, unspecified; K44.9 Diaphragmatic hernia without obstruction or gangrene; I25.10 Atherosclerotic heart disease of native coronary artery without angina pectoris; F32.9 Major depressive disorder, single episode, unspecified; Z79.82 Long term (current) use of aspirin; Z79.899 Other long term (current) drug therapy; I25.2 Old myocardial infarction; Z95.5 Presence of coronary angioplasty implant and graft; Z91.041 Radiographic dye allergy status; Z91.013 Allergy to seafood; Z91.018 Allergy to other foods; Z87.891 Personal history of nicotine dependence
CPT/HCPCS: 36415; 71045; 71046; 71250; 78582; 80048; 80053; 81001; 82550; 82553; 82803; 82962; 83010; 83036; 83605; 83615; 83880; 84439; 84443; 84484; 85025; 85027; 85362; 85379; 85610; 85730; 87040; 87086; 87088; 87186; 87804; 93005; 93010; 93306; 93970; 96365; 96367; 99285; A9540; A9567; J0456; J0696; J3490; J7030; J7060; Q9969

== ENCOUNTER 2017-12-20 18:57 | Emergency (ER) | payer MEDICARE ==
[2017-12-20 20:52] LABS: HEMATOCRIT 34.2 % (36.0-47.0); HEMOGLOBIN 11.5 g/dL (12.0-15.5); MEAN CORPUSCULAR HEMOGLOBIN 29.4 pg (27.0-33.4); MEAN CORPUSCULAR HGB CONC 33.5 g/dL (32.0-36.0); MEAN CORPUSCULAR VOLUME 88 fl (80-97); PLATELET COUNT 130 10^3/uL (150-450); RED BLOOD COUNT 3.89 10^6/uL (3.72-5.28); RED CELL DISTRIBUTION WIDTH 15.6 % (11.5-14.0); WHITE BLOOD COUNT 9.5 10^3/uL (4.0-10.5)
[2017-12-20 20:54] LABS: INTERNATIONAL RATION (INR) 1.06; PROTHROMBIN TIME 14.4 SEC (11.4-15.4)
[2017-12-20 20:55] LABS: PARTIAL THROMBOPLASTIN TIME 28.8 SEC (23.5-35.8)
--- NOTE | 2017-12-20 20:57 | ER Document Report ---
ED GI Bleed / Rectal Pain - General Chief Complaint: Rectal Bleeding Stated Complaint: ANAL PAIN Time Seen by Provider: 12/20/17 19:50 Mode of Arrival: Ambulatory Information source: Patient Notes: Patient presents complaining of constipation for the past week and states that she took 2 laxatives at home and finally had a good bowel movement. Patient states that whenever she was straining with her bowel movement she had increased rectal pain and a flareup of her hemorrhoids. Patient states that she did become lightheaded during this bowel movement. Patient denies any chest pain, shortness of breath or abdominal pain. Patient does states she was discharged from the hospital yesterday after being diagnosed with a UTI. Patient states that she did notice some blood with her stool. Patient states that her lightheadedness during the bowel movement is what concerned her and prompted her to come in tonight. TRAVEL OUTSIDE OF THE [place] IN LAST 30 DAYS: No - HPI Patient complains to provider of: Hemorrhoids, Rectal pain Timing/Duration: Better Quality of pain: Achy Pain Level: 1 Rectal bleeding: Bright red blood on paper Associated symptoms: Constipation, Hard stools. denies: Back pain, Abdominal pain Exacerbated by: Denies Relieved by: Denies Similar symptoms previously: Yes Recently seen / treated by doctor: Yes - Related Data Allergies/Adverse Reactions: iodine Allergy (Severe, Verified 12/20/17 20:28) Anaphylaxis grapefruit Allergy (Verified 12/20/17 20:28) Shellfish * [Shellfish] Allergy (Verified 12/20/17 20:28) Past Medical History - General Information source: Patient - Social History Smoking Status: Never Smoker Frequency of alcohol use: None Drug Abuse: None Lives with: Alone Family History: CAD Patient has suicidal ideation: No Patient has homicidal ideation: No - Past Medical History Cardiac Medical History: Reports: Hx Coronary Artery Disease, Hx Heart Attack - 1999, Hx Hypercholesterolemia, Hx Hypertension Pulmonary Medical History: Reports: Hx Bronchitis Neurological Medical History: Reports: Hx Cerebrovascular Accident - TIA Endocrine Medical History: Reports: Hx Diabetes Mellitus Type 2 Renal/ Medical History: Denies: Hx Peritoneal Dialysis GI Medical History: Reports: Hx Hiatal Hernia Psychiatric Medical History: Reports: Hx Anxiety - situational, see hpi, Hx Depression Past Surgical History: Reports: Hx Cardiac Catheterization - stents x5 2001,2002 ,2004, 2012 - Immunizations Hx Diphtheria, Pertussis, Tetanus Vaccination: Yes Review of Systems - Review of Systems Constitutional: Recent illness - Recently treated for UTI. denies: Fever EENT: No symptoms reported Cardiovascular: Lightheaded. denies: Chest pain, Palpitations, Heart racing, Dizziness Respiratory: No symptoms reported. denies: Cough, Short of breath Gastrointestinal: Constipation, Blood streaked bowels. denies: Abdominal pain, Nausea, Vomiting Genitourinary: No symptoms reported. denies: Dysuria Female Genitourinary: No symptoms reported Musculoskeletal: No symptoms reported. denies: Back pain Skin: No symptoms reported Hematologic/Lymphatic: No symptoms reported. denies: Easy bleeding Neurological/Psychological: No symptoms reported Physical Exam - Vital signs Vitals: Temp Pulse Resp BP Pulse Ox 97.7 F 64 16 142/53 H 96 12/20/17 18:59 12/20/17 18:59 12/20/17 18:59 12/20/17 18:59 12/20/17 18:59 - General General appearance: Appears well, Alert In distress: None - HEENT Head: Normocephalic, Atraumatic Eyes: Normal Conjunctiva: Normal Nasal: Normal Mouth/Lips: Normal Mucous membranes: Normal Neck: Normal, Supple. No: Lymphadenopathy - Respiratory Respiratory status: No respiratory distress Chest status: Nontender Breath sounds: Normal Chest palpation: Normal - Cardiovascular Rhythm: Regular Heart sounds: S1 appreciated, S2 appreciated - Abdominal Inspection: Normal Distension: No distension Bowel sounds: Normal Tenderness: Nontender Organomegaly: No organomegaly - Rectal Tenderness: Yes Stool: See lab result Hemorrhoids: Internal - prolapsed, External - Back Back: Normal, Nontender - Extremities General upper extremity: Normal inspection, Normal ROM General lower extremity: Normal inspection, Normal ROM - Neurological Neuro grossly intact: Yes Cognition: Normal [place] Coma Scale Eye Opening: Spontaneous [place] Coma Scale Verbal: Oriented [place] Coma Scale Motor: Obeys Commands [place] Coma Scale Total: 15 - Psychological Associated symptoms: Normal affect, Normal mood - Skin Skin Temperature: Warm Skin Moisture: Dry Skin Color: Normal Course - Re-evaluation Re-evalutation: 12/20/17 23:00 Patient resting comfortably, arouses easily to voice. Patient denies having any pain symptoms lightheadedness or dizziness. Patient denies any nausea or vomiting. Patient advised of diagnostic test evaluation. Patient with some mild hypokalemia, patient encouraged to follow-up with her primary doctor to have this test read dilated. Patient urinalysis does show improvement as compared to her UA performed during her recent admission. Patient also encouraged to follow-up with a automotive assembler for colonoscopy as well as a surgeon for treatment of her prolapsed hemorrhoids. She was stable vital signs as well as stable H&H. Patient's thrombocytopenia improved as compared to her recent admission. Consulted with Dr. Plascencia regarding patient presentation, reviewed diagnostic evaluation. Agrees with discharge plan of care. - Vital Signs Vital signs: Temp Pulse Resp BP Pulse Ox 97.7 F 65 15 115/53 L 94 12/20/17 18:59 12/21/17 00:06 12/21/17 00:06 12/21/17 00:06 12/21/17 00:06 - Laboratory Result Diagrams: 12/20/17 20:25 12/20/17 20:25 Laboratory results interpreted by me: 12/20/17 12/20/17 12/20/17 20:25 20:25 20:45 Hgb 11.5 L Hct 34.2 L RDW 15.6 H Plt Count 130 L Seg Neuts % (Manual) 87 H Lymphocytes % (Manual) 6 L Abs Neuts (Manual) 8.3 H Potassium 3.4 L Est GFR (Non-Af Amer) 58 L Glucose 113 H Urine Protein 30 H Urine Blood MODERATE H Urine Urobilinogen 4.0 H Labs- Entire Visit 12/20/17 12/20/17 12/20/17 20:25 20:25 20:25 WBC 9.5 RBC 3.89 Hgb 11.5 L Hct 34.2 L MCV 88 MCH 29.4 MCHC 33.5 RDW 15.6 H Plt Count 130 L Total Counted 100 Seg Neutrophils % Not Reportable Seg Neuts % (Manual) 87 H Lymphocytes % Not Reportable Lymphocytes % (Manual) 6 L Monocytes % Not Reportable Monocytes % (Manual) 7 Eosinophils % Not Reportable Eosinophils % (Manual) 0 Basophils % Not Reportable Basophils % (Manual) 0 Absolute Neutrophils Not Reportable Abs Neuts (Manual) 8.3 H Absolute Lymphocytes Not Reportable Abs Lymphs (Manual) 0.6 Absolute Monocytes Not Reportable Abs Monocytes (Manual) 0.7 Absolute Eosinophils Not Reportable Absolute Eos (Manual) 0.0 Absolute Basophils Not Reportable Abs Basophils (Manual) 0.0 Toxic Granulation SLIGHT Platelet Comment DECREASED Anisocytosis SLIGHT PT 14.4 INR 1.06 APTT 28.8 Sodium 142.0 Potassium 3.4 L Chloride 105 Carbon Dioxide 26 Anion Gap 11 BUN 16 Creatinine 0.94 Est GFR ( Amer) > 60 Est GFR (Non-Af Amer) 58 L Glucose 113 H Calcium 9.6 Total Bilirubin 0.8 Direct Bilirubin 0.2 Neonat Total Bilirubin Not Reportable Neonat Direct Bilirubin Not Reportable Neonat Indirect Bili Not Reportable AST 27 ALT 21 Alkaline Phosphatase 107 Troponin I Total Protein 6.8 Albumin 3.8 Urine Color Urine Appearance Urine pH Ur Specific [place] Urine Protein Urine Glucose (UA) Urine Ketones Urine Blood Urine Nitrite Urine Bilirubin Urine Urobilinogen Ur Leukocyte Esterase Urine WBC (Auto) Urine RBC (Auto) U Hyaline Cast (Auto) Urine Mucus (Auto) Urine Ascorbic Acid Stool Occult Blood 12/20/17 12/20/17 12/20/17 20:25 20:45 20:51 WBC RBC Hgb Hct MCV MCH MCHC RDW Plt Count Total Counted Seg Neutrophils % Seg Neuts % (Manual) Lymphocytes % Lymphocytes % (Manual) Monocytes % Monocytes % (Manual) Eosinophils % Eosinophils % (Manual) Basophils % Basophils % (Manual) Absolute Neutrophils Abs Neuts (Manual) Absolute Lymphocytes Abs Lymphs (Manual) Absolute Monocytes Abs Monocytes (Manual) Absolute Eosinophils Absolute Eos (Manual) Absolute Basophils Abs Basophils (Manual) Toxic Granulation Platelet Comment Anisocytosis PT INR APTT Sodium Potassium Chloride Carbon Dioxide Anion Gap BUN Creatinine Est GFR ( Amer) Est GFR (Non-Af Amer) Glucose Calcium Total Bilirubin Direct Bilirubin Neonat Total Bilirubin Neonat Direct Bilirubin Neonat Indirect Bili AST ALT Alkaline Phosphatase Troponin I < 0.012 Total Protein Albumin Urine Color YELLOW Urine Appearance SLIGHTLY-CLOUDY Urine pH 6.0 Ur Specific [place] 1.012 Urine Protein 30 H Urine Glucose (UA) NEGATIVE Urine Ketones NEGATIVE Urine Blood MODERATE H Urine Nitrite NEGATIVE Urine Bilirubin NEGATIVE Urine Urobilinogen 4.0 H Ur Leukocyte Esterase NEGATIVE Urine WBC (Auto) 14 Urine RBC (Auto) 2 U Hyaline Cast (Auto) 14 Urine Mucus (Auto) MANY Urine Ascorbic Acid NEGATIVE Stool Occult Blood POSITIVE Discharge - Discharge Clinical Impression: Prolapsed internal hemorrhoids, Rectal pain, Hypokalemia Condition: Stable Disposition: HOME, SELF-CARE Instructions: HC Hemorrhoid Cream ([facility]), Hemorrhoids ([facility]) Additional Instructions: Return immediately for any new or worsening symptoms Followup with your primary care provider, call tomorrow to make a followup appointment Your potassium blood test was slightly decreased today. Increase diet with foods rich in potassium such as bananas, potatoes, lentils, or spinach You should have a colonoscopy for further evaluation of your symptoms. Your primary doctor can order this test for you You should see a surgeon for further management of your hemorrhoids You may use Tucks pads [id number] to help with rectal discomfort after bowel movements Prescriptions: Docusate Sodium [Colace 100 mg Capsule] 200 mg PO DAILY #20 capsule Hydrocortisone Acetate [Anusol Hc 25 Mg Supp.Rect] 25 mg CA BID PRN #10 supp.rect PRN Reason: Referrals: GREY VARELA MD [Primary Care Provider] - Follow up as needed [facility] [Provider Group] - Follow up as needed KAMILAH BLISS MD [NO LOCAL MD] - Follow up as needed MOSES DELGADO MD [ACTIVE STAFF] - Follow up as needed
[2017-12-20 21:08] LABS: ABSOLUTE LYMPHOCYTES# (MANUAL) 0.6 10^3/uL (0.5-4.7); ABSOLUTE MONOCYTES # (MANUAL) 0.7 10^3/uL (0.1-1.4); ABSOLUTE NEUTROPHILS# (MANUAL) 8.3 10^3/uL (1.7-8.2); BASOPHILS % (MANUAL) 0 % (0-2); EOSINOPHILS % (MANUAL) 0 % (0-6); LYMPHOCYTES % (MANUAL) 6 % (13-45); MONOCYTES % (MANUAL) 7 % (3-13); SEGMENTED NEUTROPHILS % (MAN) 87 % (42-78); TOTAL CELLS COUNTED 100
[2017-12-20 21:09] LABS: ANISOCYTOSIS SLIGHT; PLATELET COMMENT DECREASED; TOXIC GRANULATION SLIGHT
[2017-12-20 21:11] LABS: APPEARANCE,URINE SLIGHTLY-CLOUDY; BILIRUBIN,URINE NEGATIVE (NEGATIVE); COLOR,URINE YELLOW; GLUCOSE, URINE NEGATIVE (NEGATIVE); KETONES,URINE NEGATIVE (NEGATIVE); LEUKOCYTE ESTERASE,URINE NEGATIVE (NEGATIVE); NITRITE,URINE NEGATIVE (NEGATIVE); PROTEIN,URINE 30 mg/dL (NEGATIVE); URINE SPECIFIC GRAVITY 1.012
[2017-12-20 21:22] LABS: ALANINE AMINOTRANSFERASE 21 U/L (9-52); ALBUMIN 3.8 g/dL (3.5-5.0); ALKALINE PHOSPHATASE 107 U/L (38-126); ANION GAP 11 (5-19); ASPARTATE AMINO TRANSFERASE 27 U/L (14-36); BILIRUBIN,DIRECT 0.2 mg/dL (0.0-0.4); BILIRUBIN,TOTAL 0.8 mg/dL (0.2-1.3); BLOOD UREA NITROGEN 16 mg/dL (7-20); CALCIUM 9.6 mg/dL (8.4-10.2); CARBON DIOXIDE 26 mmol/L (22-30); CHLORIDE 105 mmol/L (98-107); GLUCOSE 113 mg/dL (75-110); POTASSIUM 3.4 mmol/L (3.6-5.0); TOTAL PROTEIN 6.8 g/dL (6.3-8.2)
[2017-12-20 22:13] VITALS: BP 115/53
[2017-12-20] MEDS ORDERED: POTASSIUM CHLORIDE 20 MEQ/15 ML UDCUP PO ONE (22:49)
--- NOTE | 2017-12-21 10:41 | EKG REPORT ---
SEVERITY:- ABNORMAL ECG - SINUS RHYTHM NONSPECIFIC T ABNORMALITIES, LATERAL LEADS : Confirmed by: Jimmie Jeronimo 21-Dec-2017 10:40:55
== END 2017-12-21 00:28 | disposition home or self-care (01) ==
LOC: ER 18:57
DX: K64.8 Other hemorrhoids (principal); K62.89 Other specified diseases of anus and rectum; E87.6 Hypokalemia; I25.10 Atherosclerotic heart disease of native coronary artery without angina pectoris; I25.2 Old myocardial infarction; E78.00 Pure hypercholesterolemia, unspecified; I10 Essential (primary) hypertension; Z86.73 Personal history of transient ischemic attack (TIA), and cerebral infarction without residual deficits; E11.9 Type 2 diabetes mellitus without complications; Z91.013 Allergy to seafood
CPT/HCPCS: 93005; 99285; 36415; 85025; 85610; 85730; 82272; 80053; 81001; 84484; 93010; A9270

== ENCOUNTER 2018-02-09 15:20 | Emergency (ER) | payer MEDICARE ==
[2018-02-09] MEDS ORDERED: ASPIRIN 81 MG TABLET, CHEWABLE PO ONE (15:23)
[2018-02-09 15:46] LABS: ABSOLUTE EOSINOPHILS # (AUTO) 0.1 10^3/uL (0.0-0.6); ABSOLUTE MONOCYTES (AUTO) 0.3 10^3/uL (0.1-1.4); BASOPHILS % (AUTO) 0.6 % (0-2); EOSINOPHILS % (AUTO) 1.3 % (0-6); HEMATOCRIT 37.8 % (36.0-47.0); HEMOGLOBIN 12.6 g/dL (12.0-15.5); LYMPHOCYTES % (AUTO) 18.7 % (13-45); MEAN CORPUSCULAR HEMOGLOBIN 29.4 pg (27.0-33.4); MEAN CORPUSCULAR HGB CONC 33.4 g/dL (32.0-36.0); MEAN CORPUSCULAR VOLUME 88 fl (80-97); MONOCYTES % (AUTO) 5.7 % (3-13); PLATELET COUNT 110 10^3/uL (150-450); RED BLOOD COUNT 4.29 10^6/uL (3.72-5.28); RED CELL DISTRIBUTION WIDTH 15.9 % (11.5-14.0); SEGMENTED NEUTROPHILS % (AUTO) 73.7 % (42-78); TOTAL CELLS COUNTED % (AUTO) 100 %; WHITE BLOOD COUNT 5.4 10^3/uL (4.0-10.5)
--- NOTE | 2018-02-09 15:54 | RADIOLOGY REPORT (SQ) ---
EXAM DESCRIPTION: CHEST SINGLE VIEW COMPLETED DATE/TIME: 02/09/2018 3:46 pm REASON FOR STUDY: chest pain COMPARISON: 12/18/2017 EXAM PARAMETERS: NUMBER OF VIEWS: One view. TECHNIQUE: Single frontal radiographic view of the chest acquired. RADIATION DOSE: NA LIMITATIONS: None. FINDINGS: LUNGS AND PLEURA: No opacities, masses or pneumothorax. No pleural effusion. MEDIASTINUM AND HILAR STRUCTURES: No masses. Contour normal. HEART AND VASCULAR STRUCTURES: Heart normal in size. Normal vasculature. BONES: No acute findings. HARDWARE: None in the chest. OTHER: No other significant finding. IMPRESSION: NO ACUTE RADIOGRAPHIC FINDING IN THE CHEST. TECHNICAL DOCUMENTATION: JOB ID: [id number] [employer]- All Rights Reserved Reading location - IP/workstation name: [email or web address]
[2018-02-09 16:07] LABS: ALANINE AMINOTRANSFERASE 11 U/L (9-52); ALBUMIN 4.1 g/dL (3.5-5.0); ALKALINE PHOSPHATASE 107 U/L (38-126); ANION GAP 9 (5-19); ASPARTATE AMINO TRANSFERASE 22 U/L (14-36); BILIRUBIN,DIRECT 0.4 mg/dL (0.0-0.4); BILIRUBIN,TOTAL 1.1 mg/dL (0.2-1.3); BLOOD UREA NITROGEN 22 mg/dL (7-20); CALCIUM 9.7 mg/dL (8.4-10.2); CARBON DIOXIDE 27 mmol/L (22-30); CHLORIDE 105 mmol/L (98-107); CREATINE KINASE 54 U/L (30-135); GLUCOSE 106 mg/dL (75-110); POTASSIUM 3.8 mmol/L (3.6-5.0); SODIUM 141.4 mmol/L (137-145)
[2018-02-09 16:19] LABS: CREATINE KINASE MB 0.55 ng/mL (<4.55)
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
[2018-02-09 16:23] LABS: TROPONIN I < 0.012 ng/mL
--- NOTE | 2018-02-09 19:16 | EKG REPORT ---
SEVERITY:- ABNORMAL ECG - SINUS RHYTHM NONSPECIFIC T ABNORMALITIES, LATERAL LEADS : Confirmed by: Tasneem العلي MD 09-Feb-2018 19:15:29
[2018-02-09 20:21] VITALS: BP 129/59
== END 2018-02-09 20:29 | disposition home or self-care (01) ==
LOC: ER 15:20
DX: R07.9 Chest pain, unspecified (principal); F41.8 Other specified anxiety disorders; R06.02 Shortness of breath; I25.10 Atherosclerotic heart disease of native coronary artery without angina pectoris; I10 Essential (primary) hypertension; E78.5 Hyperlipidemia, unspecified; E11.9 Type 2 diabetes mellitus without complications; Z95.5 Presence of coronary angioplasty implant and graft
CPT/HCPCS: 93005; 99285; 36415; 82553; 82550; 85025; 80053; 84484; 71045; 93010; A9270

== ENCOUNTER 2018-08-04 11:51 | Emergency (ER) | payer MEDICARE ==
--- NOTE | 2018-08-04 12:30 | ER Document Report ---
ED GI/ - General Chief Complaint: Constipation Stated Complaint: CONSTIPATION Time Seen by Provider: 08/04/18 12:18 Primary Care Provider: GREY VARELA MD [Primary Care Provider] - Follow up as needed Mode of Arrival: Medic Information source: Patient TRAVEL OUTSIDE OF THE [place] IN LAST 30 DAYS: No - HPI Patient complains to provider of: Abdominal pain Onset: This morning - pt states she has not had a BM in approximately 1 week. She also states she has hemorrhoids which has gotten worse in the past few days. - Related Data Allergies/Adverse Reactions: iodine Allergy (Severe, Verified 12/20/17 20:28) Anaphylaxis grapefruit Allergy (Verified 12/20/17 20:28) Shellfish * [Shellfish] Allergy (Verified 12/20/17 20:28) Past Medical History - General Information source: Patient - Social History Smoking Status: Former Smoker Chew tobacco use (# tins/day): No Frequency of alcohol use: None Drug Abuse: None Family History: CAD Patient has suicidal ideation: No Patient has homicidal ideation: No - Past Medical History Cardiac Medical History: Reports: Hx Coronary Artery Disease, Hx Heart Attack - 1999, Hx Hypercholesterolemia, Hx Hypertension Pulmonary Medical History: Reports: Hx Bronchitis Neurological Medical History: Reports: Hx Cerebrovascular Accident - TIA Endocrine Medical History: Reports: Hx Diabetes Mellitus Type 2 Renal/ Medical History: Denies: Hx Peritoneal Dialysis GI Medical History: Reports: Hx Hiatal Hernia Psychiatric Medical History: Reports: Hx Anxiety - situational, see hpi, Hx Depression Past Surgical History: Reports: Hx Cardiac Catheterization - stents x5 2001,2002,2004, 2012 - Immunizations Hx Diphtheria, Pertussis, Tetanus Vaccination: Yes Review of Systems - Review of Systems Constitutional: No symptoms reported EENT: No symptoms reported Cardiovascular: No symptoms reported Respiratory: No symptoms reported Gastrointestinal: See HPI, Constipation Musculoskeletal: No symptoms reported Neurological/Psychological: No symptoms reported -: Yes All other systems reviewed and negative Physical Exam - Vital signs Vitals: Temp Pulse Resp BP Pulse Ox 97.5 F 58 L 18 139/60 H 96 08/04/18 11:55 08/04/18 11:55 08/04/18 11:55 08/04/18 11:55 08/04/18 11:55 - General General appearance: Appears well In distress: None - Cardiovascular Rhythm: Regular Heart sounds: Normal auscultation Murmur: No - Abdominal Inspection: Normal Bowel sounds: Normal - Rectal Tenderness: Yes Stool: Heme positive Hemorrhoids: External - there arer 2 non-thrombosed external hemorrhoids visible a 3 and 9 o'clock at anal orifice. Course - Re-evaluation Re-evalutation: 08/04/18 16:45 I personally disimpacted this pt. and removed several pieces of hard stool. The nurses then were able to give her a SSE with large amounts of stool passes. Pt. felgt much cbetter at time of d/c - Vital Signs Vital signs: Temp Pulse Resp BP Pulse Ox 97.5 F 58 L 18 139/60 H 96 08/04/18 11:55 08/04/18 11:55 08/04/18 11:55 08/04/18 11:55 08/04/18 11:55 - Diagnostic Test Radiology reviewed: Reports reviewed - large fecal burder Discharge - Discharge Clinical Impression: Acute constipation Condition: Stable Disposition: HOME, SELF-CARE Instructions: Constipation ([facility]) Additional Instructions: rest, increase fluid, take meds as prescribed, return if worse Prescriptions: Polyethylene Glycol 3350 [Miralax Powder 17 gm/Packet] 1 packet PO DAILY #1 pkg Referrals: GREY VARELA MD [Primary Care Provider] - Follow up as needed
[2018-08-04] MEDS ORDERED: ACETAMINOPHEN 325 MG TABLET PO ONE (13:01)
--- NOTE | 2018-08-04 14:47 | RADIOLOGY REPORT (SQ) ---
EXAM DESCRIPTION: ABDOMEN 2 VIEWS COMPLETED DATE/TIME: 08/04/2018 2:15 pm REASON FOR STUDY: abd pain/constipation COMPARISON: None. NUMBER OF VIEWS: Two views. TECHNIQUE: Supine and erect/decubitus radiographic images of the abdomen acquired. LIMITATIONS: None. FINDINGS: FREE AIR: None. No abnormal gas collections. LUNG BASES: Clear. BOWEL GAS PATTERN: Nonobstructive pattern. Large amount of stool throughout the colon and rectum. N o dilated loops or air fluid levels. CALCIFICATIONS: Gallstone. SOFT TISSUES: No gross mass or suggestion of organomegaly. HARDWARE: None in the abdomen. BONES: No acute fracture. No worrisome bone lesions. OTHER: No other significant finding. IMPRESSION: NO RADIOGRAPHIC EVIDENCE FOR ACUTE ABDOMINAL DISEASE. THERE IS A LARGE AMOUNT OF STOOL THROUGHOUT THE COLON AND RECTUM CONSISTENT WITH CONSTIPATION. TECHNICAL DOCUMENTATION: JOB ID: [id number] [employer]- All Rights Reserved Reading location - IP/workstation name: [email or web address]
[2018-08-04 17:44] VITALS: BP 118/57
== END 2018-08-04 17:37 | disposition home or self-care (01) ==
LOC: ER 11:51
DX: K59.00 Constipation, unspecified (principal); K64.4 Residual hemorrhoidal skin tags; I25.10 Atherosclerotic heart disease of native coronary artery without angina pectoris; I10 Essential (primary) hypertension; E11.9 Type 2 diabetes mellitus without complications; Z95.5 Presence of coronary angioplasty implant and graft; Z87.892 Personal history of anaphylaxis; Z91.018 Allergy to other foods; Z91.013 Allergy to seafood; Z87.891 Personal history of nicotine dependence
CPT/HCPCS: 99284; 74019; A9270

== ENCOUNTER 2019-03-10 05:34 | Emergency (ER) | payer MEDICARE ==
[2019-03-10 05:54] LABS: ABSOLUTE EOSINOPHILS # (AUTO) 0.1 10^3/uL (0.0-0.6); ABSOLUTE LYMPHOCYTES (AUTO) 0.9 10^3/uL (0.5-4.7); ABSOLUTE MONOCYTES (AUTO) 0.3 10^3/uL (0.1-1.4); ABSOLUTE NEUT (AUTO) 2.4 10^3/uL (1.7-8.2); HEMATOCRIT 35.6 % (36.0-47.0); HEMOGLOBIN 11.9 g/dL (12.0-15.5); LYMPHOCYTES % (AUTO) 23.6 % (13-45); MEAN CORPUSCULAR HEMOGLOBIN 28.9 pg (27.0-33.4); MEAN CORPUSCULAR HGB CONC 33.4 g/dL (32.0-36.0); MEAN CORPUSCULAR VOLUME 87 fl (80-97); PLATELET COUNT 115 10^3/uL (150-450); RED BLOOD COUNT 4.12 10^6/uL (3.72-5.28); RED CELL DISTRIBUTION WIDTH 15.7 % (11.5-14.0); SEGMENTED NEUTROPHILS % (AUTO) 65.4 % (42-78); TOTAL CELLS COUNTED % (AUTO) 100 %; WHITE BLOOD COUNT 3.7 10^3/uL (4.0-10.5)
[2019-03-10 06:14] LABS: ALBUMIN 3.9 g/dL (3.5-5.0); ALKALINE PHOSPHATASE 117 U/L (38-126); ANION GAP 7 (5-19); ASPARTATE AMINO TRANSFERASE 19 U/L (14-36); BILIRUBIN,DIRECT 0.1 mg/dL (0.0-0.4); BILIRUBIN,TOTAL 0.6 mg/dL (0.2-1.3); BLOOD UREA NITROGEN 15 mg/dL (7-20); CALCIUM 9.5 mg/dL (8.4-10.2); CARBON DIOXIDE 26 mmol/L (22-30); CHLORIDE 108 mmol/L (98-107); CREATINE KINASE 41 U/L (30-135); GLUCOSE 88 mg/dL (75-110); POTASSIUM 3.7 mmol/L (3.6-5.0); TOTAL PROTEIN 7.2 g/dL (6.3-8.2)
[2019-03-10 06:26] LABS: CREATINE KINASE MB 0.51 ng/mL (<4.55)
[2019-03-10 06:27] LABS: TROPONIN I < 0.012 ng/mL
[2019-03-10] MEDS ORDERED: NORMAL SALINE 1000 ML 1,000 ML IV ONE (06:54)
--- NOTE | 2019-03-10 07:38 | RADIOLOGY REPORT (SQ) ---
EXAM: XR Chest, 2 Views EXAM DATE/TIME: 03/10/2019 7:25 AM CLINICAL HISTORY: The patient is 73 years old and is Female; cp TECHNIQUE: Frontal and lateral views of the chest. COMPARISON: Chest radiograph from 02/09/2018 FINDINGS: LUNGS: Unremarkable. No consolidation. PLEURAL SPACE: Unremarkable. No pneumothorax. HEART: No significant enlargement of the cardiac silhouette. MEDIASTINUM: Unremarkable. BONES/JOINTS: No acute osseous findings. VASCULATURE: Atherosclerotic calcifications within the aorta. IMPRESSION: No acute findings visualized in the chest.
--- NOTE | 2019-03-10 08:40 | EKG REPORT ---
SEVERITY:- ABNORMAL ECG - SINUS RHYTHM PROBABLE LVH WITH SECONDARY REPOL ABNRM : Confirmed by: Jimmie Jeronimo 10-Mar-2019 08:38:49
[2019-03-10 09:59] LABS: APPEARANCE,URINE CLEAR; BILIRUBIN,URINE NEGATIVE (NEGATIVE); COLOR,URINE YELLOW; GLUCOSE, URINE NEGATIVE (NEGATIVE); KETONES,URINE NEGATIVE (NEGATIVE); LEUKOCYTE ESTERASE,URINE TRACE (NEGATIVE); NITRITE,URINE NEGATIVE (NEGATIVE); PROTEIN,URINE NEGATIVE (NEGATIVE); URINE SPECIFIC GRAVITY 1.008; UROBILINOGEN,URINE NEGATIVE mg/dL (<2.0)
[2019-03-10] MEDS ORDERED: METOPROLOL SUCCINATE 50 MG TAB.SR.24H PO ONE (10:04)
[2019-03-10] MEDS ORDERED: LISINOPRIL 10 MG TABLET PO ONE (10:06)
[2019-03-10 14:17] VITALS: BP 158/76
--- NOTE | 2019-03-10 16:15 | ER Document Report ---
Entered by ANDREA SILVER SCRIBE 03/10/19 0648 Acting as scribe for:ROBEL JUAN MD ED Cardiac - General Chief Complaint: Chest Pain Stated Complaint: CHEST PAIN Time Seen by Provider: 03/10/19 06:18 Primary Care Provider: GREY VARELA MD [Primary Care Provider] - Follow up as needed Mode of Arrival: Medic Information source: Patient Notes: This 73-year-old female patient presents to the emergency department today with complaints of chest pressure that began just prior to arrival. Patient describes the chest pressure as a dull pain. Patient states that she was walking to the bathroom and she became short of breath and then the chest pain began. Patient mentions that she has a history of anxiety and she thinks that it could be playing and to her symptoms today. EMS gave the patient 3 sprays of NTG while en route here which relieved the chest pressure. Patient also mentions that she has been out of her at home medications for at least 3 weeks. Patient does not really have an answer as to why, she states she has told her daughter multiple times about not having medicine but she has "not gotten them for her yet." Patient is a poor historian but she is able to name metoprolol, atorvastatin, and allopurinol. She states there is more meds that she cannot remember. Patient states she felt cool and clammy when the chest pain was present, but she denies any radiation of the pain or nausea. TRAVEL OUTSIDE OF THE [place] IN LAST 30 DAYS: No - Related Data Allergies/Adverse Reactions: iodine Allergy (Severe, Verified 12/20/17 20:28) Anaphylaxis grapefruit Allergy (Verified 12/20/17 20:28) Shellfish * [Shellfish] Allergy (Verified 12/20/17 20:28) Home Medications: "Out of meds" Past Medical History - General Information source: Patient - Social History Smoking Status: Current Every Day Smoker Cigarette use (# per day): Yes Frequency of alcohol use: None Drug Abuse: None Lives with: Family Family History: Reviewed & Not Pertinent, CAD Patient has suicidal ideation: No Patient has homicidal ideation: No - Past Medical History Cardiac Medical History: Reports: Hx Coronary Artery Disease, Hx Heart Attack - 1999, Hx Hypercholesterolemia, Hx Hypertension Pulmonary Medical History: Reports: Hx Bronchitis Neurological Medical History: Reports: Hx Cerebrovascular Accident - TIA Endocrine Medical History: Reports: Hx Diabetes Mellitus Type 2 Renal/ Medical History: Denies: Hx Peritoneal Dialysis GI Medical History: Reports: Hx Hiatal Hernia Psychiatric Medical History: Reports: Hx Anxiety - situational, see hpi, Hx Depression Past Surgical History: Reports: Hx Cardiac Catheterization - stents x5 2001,24 04,2004, 2011 - Immunizations Hx Diphtheria, Pertussis, Tetanus Vaccination: Yes Review of Systems - Review of Systems Constitutional: No symptoms reported EENT: No symptoms reported Cardiovascular: See HPI, Chest pain Respiratory: See HPI, Short of breath Gastrointestinal: No symptoms reported Genitourinary: No symptoms reported Female Genitourinary: No symptoms reported Musculoskeletal: No symptoms reported Skin: No symptoms reported Hematologic/Lymphatic: No symptoms reported Neurological/Psychological: See HPI, Anxiety -: Yes All other systems reviewed and negative Physical Exam - Vital signs Vitals: Resp Pulse Ox 18 100 03/10/19 05:38 03/10/19 05:38 - Notes Notes: Physical Exam: General: Alert, appears age appropriate. HEENT: Normocephalic. Atraumatic. PERRL. Extraocular movements intact. Oropharynx clear. Neck: Supple. Non-tender. Respiratory: No respiratory distress. Clear and equal breath sounds bilaterally. Cardiovascular: Sinus bradycardia. Abdominal: Normal Inspection. Non-tender. No distension. Normal Bowel Sounds. Back: No gross abnormalities. Extremities: Moves all four extremities. Upper extremities: Normal inspection. Normal ROM. Lower extremities: Soft tissue swelling of bilateral lower extremities without pitting, right lower extremity is larger than the left which the patient states is a chronic issue for her. Neurological: Normal cognition. AAOx4. Normal speech. Psychological: Normal affect. Normal Mood. Skin: Warm. Dry. Normal color. Course - Re-evaluation Re-evalutation: 03/10/19 10:11 Patient is not having any chest pain shortness of breath or any complaint of pain at this time. Patient is hemodynamically stable with systolic is 175 at this time will give patient third 2 medications that she takes for blood pressure which is metoprolol and lisinopril. Plan to order 30-day supply of lisinopril and metoprolol for patient until she can see her primary care doctor. Chest x-ray did not show any acute process of infiltrate CHF or any pneumonia. Troponin has been negative x2. - Vital Signs Vital signs: Temp Pulse Resp BP Pulse Ox 98.4 F 14 152/69 H 97 03/10/19 06:00 03/10/19 07:01 03/10/19 07:01 03/10/19 07:01 - Laboratory Result Diagrams: 03/10/19 04:55 03/10/19 04:55 Laboratory results interpreted by me: 03/10/19 03/10/19 03/10/19 04:55 04:55 09:47 WBC 3.7 L Hgb 11.9 L Hct 35.6 L RDW 15.7 H Plt Count 115 L Chloride 108 H Est GFR (MDRD) Non-Af 58 L Urine Blood SMALL H Ur Leukocyte Esterase TRACE H - Diagnostic Test Radiology reviewed: Image reviewed, Reports reviewed Radiology results interpreted by me: 03/10/19 10:13 Chest x-ray did not show any acute process no cardiomegaly CHF or infiltrates. - EKG Interpretation by Me Additional EKG results interpreted by me: 03/10/19 10:15 Twelve-lead EKG shows normal sinus rhythm rate of 53 sinus bradycardia LVH with secondary repolarization abnormalities otherwise no acute process. No STEMI Discharge - Discharge Clinical Impression: HTN (hypertension), Chest pain, Anxiety Condition: Stable Disposition: HOME, SELF-CARE Instructions: Chest Pain of Unclear Cause ([facility]) Additional Instructions: Chest Pain of Unclear Cause The exact cause of your chest pain isn't clear. Fortunately, there is no evidence of a dangerous medical condition. Further testing may be required to find the source of the pain. Most often, we find that this pain is coming from the chest wall -- the muscles or rib joints in the chest. But chest pain can come from the lung and lung lining, the esophagus, the heart valves or heart lining, and even the stomach or gallbladder. Rest. Eat lightly until the pain is gone. We may prescribe medicine for pain and inflammation. You should call the physician immediately if the pain radiates to the shoulder, jaw or arms; if you start to run a fever or develop a cough; or if you develop shortness of breath, or other new or alarming symptoms.Anxiety The physician feels that some of your health problems are being caused by anxiety. Anxiety affects your health in many ways. Anxiety alone can cause palpitations, sweats, chest pains, abdominal pains, shortness of breath, and headaches. It contributes to ulcer disease, high blood pressure, irritable bowel syndrome, and has been shown to cause flare-ups of many other diseases. Anxiety is not a simple disorder to treat. If the anxiety is due to recent life stresses, you may simply need time to "work through" the changes. If the anxiety is due to an underlying unhappiness with yourself or due to psychiatric disturbance, professional help will be needed. Your physician can refer you for further help if needed. Anti-anxiety medication is occasionally given if the stress is acute or if you are having trouble sleeping. Chronic or frequent use of these medications is not a good idea because the body becomes reliant on it, preventing you from dealing with life's normal stresses. Prescriptions: Metoprolol Succinate [Toprol Xl 50 mg Tab.sr] 50 mg PO DAILY #30 tab.sr.24h Lisinopril [Zestril] 40 mg PO DAILY #30 tablet Forms: Elevated Blood Pressure Referrals: GREY VARELA MD [Primary Care Provider] - Follow up as needed I personally performed the services described in the documentation, reviewed and edited the documentation which was dictated to the scribe in my presence, and it accurately records my words and actions.
== END 2019-03-10 12:30 | disposition home or self-care (01) ==
LOC: ER 05:34
DX: R07.89 Other chest pain (principal); F41.9 Anxiety disorder, unspecified; I10 Essential (primary) hypertension; R06.02 Shortness of breath; R00.1 Bradycardia, unspecified; M79.89 Other specified soft tissue disorders; I25.10 Atherosclerotic heart disease of native coronary artery without angina pectoris; I25.2 Old myocardial infarction; E11.9 Type 2 diabetes mellitus without complications; F17.210 Nicotine dependence, cigarettes, uncomplicated; Z95.5 Presence of coronary angioplasty implant and graft; Z87.892 Personal history of anaphylaxis; Z91.018 Allergy to other foods; Z91.013 Allergy to seafood; Z82.49 Family history of ischemic heart disease and other diseases of the circulatory system
CPT/HCPCS: 93005; 99285; 96360; 96361; 36415; 82553; 82550; 85025; 80053; 81001; 84484; 71046; 93010; A9270 ×2; J7030

== ENCOUNTER → 2019-03-10 | Outpatient (CLI) | payer MEDICARE ==
--- NOTE | 2019-03-10 16:29 | RADIOLOGY REPORT (SQ) ---
EXAM DESCRIPTION: NM LUNG VENT/PERF SCAN COMPLETED DATE/TIME: 03/10/2019 4:11 pm REASON FOR STUDY: R09.1 PLEURISY R09.1 PLEURISY COMPARISON: 12/18/2017 V/Q scan, same day radiograph RADIONUCLIDE AND DOSE: 5.12 millicuries TC-99m MAA Intravenous 32.4 millicuries TC-99m DTPA Inhaled aerosol TECHNIQUE: Eight views of the lungs acquired post ventilation of DTPA aerosol. Eight matching views of the lungs acquired following injection of MAA. LIMITATIONS: None. FINDINGS: VENTILATION: There is central clumping of radiotracer. Otherwise homogeneous distributi on of DTPA aerosol during ventilatory phase. No significant areas of photopenia. PERFUSION: Perfusion images with homogeneous activity in no mismatched wedge-shaped segmental defects . OTHER: No other significant finding. IMPRESSION: No mismatch perfusion defects to suggest pulmonary embolus (Low probability for pulmonar y embolus). TECHNICAL DOCUMENTATION: JOB ID: [id number] [employer] All Rights Reserved Reading location - IP/workstation name: [email or web address]
== END ==
LOC: RAD 15:05
PROVIDERS: ATTEND Internal Medicine
DX: R09.1 Pleurisy (principal)
CPT/HCPCS: 78582; A9540; A9567; Q9969